=== PATIENT | female | born 1960 | race Caucasian/White ===

== ENCOUNTER 2019-12-18 10:18 | Inpatient (IN) ==
[2019-12-18] MEDS ORDERED: NALOXONE 4 MG IH PRN (14:28)
[2019-12-18] MEDS ORDERED: NON-FORMULARY MEDICATION 1 EACH EACH (Naloxone 4 MG) NS SCH (14:30)
[2019-12-18] MEDS: Insulin LISPRO 300 UNITS/3 ML VIAL SQ SCH ×2 (16:44→23:16)
[2019-12-18] MEDS: Gabapentin 300 MG CAPSULE PO SCH ×2 (16:44→23:22)
[2019-12-18] MEDS ORDERED: Insulin DETEMIR 100 UNIT/ML per UNIT SQ ONE (21:00)
[2019-12-18] MEDS: levETIRAcetam 250 MG TABLET PO SCH (23:20)
[2019-12-18] MEDS: *HR* Heparin 5,000 UNIT/ML VIAL SQ SCH (23:23)
[2019-12-19 05:10] LABS: Basophils # 0.1 K/mcL (0.0-0.2); Basophils % 0.8 %; Eosinophils # 0.3 K/mcL (0.0-0.6); Eosinophils % 3.5 %; Hematocrit 37.7 % (35.3-44.9); Hemoglobin 12.7 g/dL (11.5-15.4); Immature Granulocytes % 1.4 % (0-4); Lymphocytes # 3.2 K/mcL (0.6-4.6); Lymphocytes % 36.4 %; Mean Corpuscular HGB Conc 33.7 g/dL (31.6-35.5); Mean Corpuscular Hemoglobin 31.5 pg (28.0-33.3); Mean Corpuscular Volume 93.5 fL (83.0-100.0); Mean Platelet Volume 9.7 fL (9.4-12.4); Monocytes # 0.8 K/mcL (0.0-1.3); Monocytes % 9.7 %; Neutrophils # 4.2 K/mcL (1.6-8.9); Nucleated Red Blood Cells 0.2 /100 WBC (0); Platelet Count 319 K/mcL (140-400); Red Blood Count 4.03 M/mcL (3.82-4.97); Red Cell Distribution Width 13.6 % (11.5-14.5); Segmented Neutrophils % 48.2 %; White Blood Count 8.7 K/mcL (4.3-11.1)
[2019-12-19 05:24] LABS: BUN/Creatinine Ratio 22 (6-26); Blood Urea Nitrogen 14 mg/dL (8-23); Calcium 8.9 mg/dL (8.6-10.3); Carbon Dioxide 28 mEq/L (23-29); Chloride 101 mEq/L (98-107); Glucose 197 mg/dL (70-105); Osmolality,Calculated 290 (280-300); Potassium 4.1 mEq/L (3.5-5.1); Sodium 137 mEq/L (136-145); eGFR For African Americans > 60 (> 60); eGFR For Non-African Americans > 60 (> 60)
[2019-12-19] MEDS: *HR* Heparin 5,000 UNIT/ML VIAL SQ SCH ×3 (06:45→21:26)
[2019-12-19] MEDS: Tiotropium 18 MCG inhalation IH SCH (10:45)
[2019-12-19] MEDS: BuPROPion XL (24 HR) 150 MG TABLET PO SCH (11:32)
[2019-12-19] MEDS: ARIPiprazole 2 MG TABLET PO SCH (11:32)
[2019-12-19] MEDS: Insulin LISPRO 300 UNITS/3 ML VIAL SQ SCH ×4 (11:32→21:25)
[2019-12-19] MEDS: amLODIPine 5 MG TABLET PO SCH (11:33)
[2019-12-19] MEDS: Gabapentin 300 MG CAPSULE PO SCH ×3 (11:33→21:26)
[2019-12-19] MEDS: Loratadine 10 MG TABLET PO SCH (11:34)
[2019-12-19] MEDS: Aspirin 81 MG TAB.CHEW PO SCH (11:34)
[2019-12-19] MEDS: levETIRAcetam 250 MG TABLET PO SCH ×2 (11:34→21:25)
[2019-12-19] MEDS: Cholecalciferol (D-3) 1,000 UNIT (25MCG) TABLET PO SCH (11:34)
[2019-12-19] MEDS: Cyanocobalamin (B-12) 1,000 MCG TABLET PO SCH (11:35)
[2019-12-19] MEDS: Nystatin SUSP 5 ML UD.LIQ PO SCH ×2 (18:39→21:26)
[2019-12-19] MEDS: Budesonide/Formoterol 160/4.5 1 PUFF INH IH SCH ×2 (20:58)
[2019-12-19] MEDS ORDERED: Insulin DETEMIR 100 UNIT/ML X5UNITS SQ SCH (21:00)
[2019-12-19] MEDS: Nystatin Cream 15 GM TUBE TP SCH (21:26)
[2019-12-19] MEDS: Insulin DETEMIR 100 UNIT/ML X5UNITS SQ SCH (21:26)
[2019-12-20] MEDS: *HR* Heparin 5,000 UNIT/ML VIAL SQ SCH ×3 (04:46→20:18)
[2019-12-20 06:06] LABS: Hematocrit 38.3 % (35.3-44.9); Hemoglobin 12.9 g/dL (11.5-15.4); Mean Corpuscular HGB Conc 33.7 g/dL (31.6-35.5); Mean Corpuscular Hemoglobin 31.4 pg (28.0-33.3); Mean Corpuscular Volume 93.2 fL (83.0-100.0); Mean Platelet Volume 9.6 fL (9.4-12.4); Platelet Count 298 K/mcL (140-400); Red Blood Count 4.11 M/mcL (3.82-4.97); Red Cell Distribution Width 13.7 % (11.5-14.5)
[2019-12-20 06:24] LABS: BUN/Creatinine Ratio 24 (6-26); Blood Urea Nitrogen 16 mg/dL (8-23); Calcium 8.9 mg/dL (8.6-10.3); Carbon Dioxide 29 mEq/L (23-29); Chloride 98 mEq/L (98-107); Glucose 161 mg/dL (70-105); Osmolality,Calculated 285 (280-300); Potassium 3.8 mEq/L (3.5-5.1); Sodium 135 mEq/L (136-145); eGFR For African Americans > 60 (> 60); eGFR For Non-African Americans > 60 (> 60)
[2019-12-20] MEDS: Tiotropium 18 MCG inhalation IH SCH (07:23)
[2019-12-20] MEDS: Budesonide/Formoterol 160/4.5 1 PUFF INH IH SCH ×2 (07:24→20:25)
[2019-12-20] MEDS: Insulin LISPRO 300 UNITS/3 ML VIAL SQ SCH ×4 (09:09→20:17)
[2019-12-20] MEDS: Insulin DETEMIR 100 UNIT/ML X5UNITS SQ SCH ×2 (09:55→20:17)
[2019-12-20] MEDS: ARIPiprazole 2 MG TABLET PO SCH (09:56)
[2019-12-20] MEDS: BuPROPion XL (24 HR) 150 MG TABLET PO SCH (09:56)
[2019-12-20] MEDS: levETIRAcetam 250 MG TABLET PO SCH ×2 (09:56→20:17)
[2019-12-20] MEDS: Cholecalciferol (D-3) 1,000 UNIT (25MCG) TABLET PO SCH (09:57)
[2019-12-20] MEDS: amLODIPine 5 MG TABLET PO SCH (09:57)
[2019-12-20] MEDS: Gabapentin 300 MG CAPSULE PO SCH ×3 (09:57→20:18)
[2019-12-20] MEDS: Nystatin Cream 15 GM TUBE TP SCH ×2 (09:58→20:18)
[2019-12-20] MEDS: Aspirin 81 MG TAB.CHEW PO SCH (09:58)
[2019-12-20] MEDS: Nystatin SUSP 5 ML UD.LIQ PO SCH ×4 (09:58→20:18)
[2019-12-20] MEDS: Loratadine 10 MG TABLET PO SCH (09:58)
[2019-12-20] MEDS: Cyanocobalamin (B-12) 1,000 MCG TABLET PO SCH (11:49)
[2019-12-21] MEDS: *HR* Heparin 5,000 UNIT/ML VIAL SQ SCH ×3 (04:09→20:41)
[2019-12-21] MEDS: Tiotropium 18 MCG inhalation IH SCH (07:36)
[2019-12-21] MEDS: Budesonide/Formoterol 160/4.5 1 PUFF INH IH SCH ×2 (07:36→21:36)
[2019-12-21] MEDS: levETIRAcetam 250 MG TABLET PO SCH ×2 (09:26→20:40)
[2019-12-21] MEDS: BuPROPion XL (24 HR) 150 MG TABLET PO SCH (09:26)
[2019-12-21] MEDS: ARIPiprazole 2 MG TABLET PO SCH (09:27)
[2019-12-21] MEDS: Gabapentin 300 MG CAPSULE PO SCH ×3 (09:27→20:41)
[2019-12-21] MEDS: Cyanocobalamin (B-12) 1,000 MCG TABLET PO SCH (09:28)
[2019-12-21] MEDS: Insulin DETEMIR 100 UNIT/ML X5UNITS SQ SCH ×2 (09:28→20:40)
[2019-12-21] MEDS: amLODIPine 5 MG TABLET PO SCH (09:28)
[2019-12-21] MEDS: Cholecalciferol (D-3) 1,000 UNIT (25MCG) TABLET PO SCH (09:28)
[2019-12-21] MEDS: Aspirin 81 MG TAB.CHEW PO SCH (09:28)
[2019-12-21] MEDS: Loratadine 10 MG TABLET PO SCH (09:28)
[2019-12-21] MEDS: Nystatin SUSP 5 ML UD.LIQ PO SCH ×3 (09:29→20:40)
[2019-12-21] MEDS: Nystatin Cream 15 GM TUBE TP SCH ×2 (09:29→20:40)
[2019-12-21] MEDS: Insulin LISPRO 300 UNITS/3 ML VIAL SQ SCH ×3 (09:29→20:42)
[2019-12-21 21:41] LABS: Bilirubin,Urine Negative (Negative); Blood,Urine Trace-lysed (Negative); Clarity,Urine Clear (Clear); Color,Urine Yellow (Yellow); Glucose,Urine (UA) Normal (Normal); Ketones,Urine Trace mg/dL (Negative); Leukocyte Esterase,Urine Small (Negative); Nitrite,Urine Positive (Negative); PH,Urine 5.5 pH Units (5.0-8.0); Protein,Urine 100 mg/dL (Neg-Trace); Specific Gravity,Urine >= 1.030 (1.010-1.025); Urobilinogen,Urine Normal (Normal)
[2019-12-21 21:50] LABS: Bacteria,Urine Many per hpf (None-Few); Mucus,Urine Many per lpf (None-Few); Squamous Epithelial Cell,Urine Few per hpf (None-Few); WBC,Urine 15-30 per hpf (0-3)
[2019-12-22] MEDS: *HR* Heparin 5,000 UNIT/ML VIAL SQ SCH ×3 (06:06→21:58)
[2019-12-22] MEDS: Budesonide/Formoterol 160/4.5 1 PUFF INH IH SCH ×2 (07:13→17:36)
[2019-12-22] MEDS: Tiotropium 18 MCG inhalation IH SCH (07:14)
[2019-12-22] MEDS: ARIPiprazole 2 MG TABLET PO SCH (08:38)
[2019-12-22] MEDS: levETIRAcetam 250 MG TABLET PO SCH ×2 (08:39→21:52)
[2019-12-22] MEDS: Aspirin 81 MG TAB.CHEW PO SCH (08:39)
[2019-12-22] MEDS: Nystatin SUSP 5 ML UD.LIQ PO SCH ×4 (08:39→21:56)
[2019-12-22] MEDS: BuPROPion XL (24 HR) 150 MG TABLET PO SCH (08:40)
[2019-12-22] MEDS: Gabapentin 300 MG CAPSULE PO SCH ×3 (08:40→21:54)
[2019-12-22] MEDS: amLODIPine 5 MG TABLET PO SCH (08:40)
[2019-12-22] MEDS: Loratadine 10 MG TABLET PO SCH (08:40)
[2019-12-22] MEDS: Cholecalciferol (D-3) 1,000 UNIT (25MCG) TABLET PO SCH (08:40)
[2019-12-22] MEDS: Insulin LISPRO 300 UNITS/3 ML VIAL SQ SCH ×4 (08:41→22:31)
[2019-12-22] MEDS: Cyanocobalamin (B-12) 1,000 MCG TABLET PO SCH (08:41)
[2019-12-22] MEDS: Insulin DETEMIR 100 UNIT/ML X5UNITS SQ SCH ×2 (08:47→22:36)
[2019-12-22] MEDS: Nystatin Cream 15 GM TUBE TP SCH ×2 (09:01→21:57)
[2019-12-23] MEDS: *HR* Heparin 5,000 UNIT/ML VIAL SQ SCH ×3 (06:23→22:11)
[2019-12-23] MEDS: Tiotropium 18 MCG inhalation IH SCH (07:08)
[2019-12-23] MEDS: Budesonide/Formoterol 160/4.5 1 PUFF INH IH SCH ×2 (07:08→21:43)
[2019-12-23] MEDS: BuPROPion XL (24 HR) 150 MG TABLET PO SCH (09:24)
[2019-12-23] MEDS: Cholecalciferol (D-3) 1,000 UNIT (25MCG) TABLET PO SCH (09:24)
[2019-12-23] MEDS: Gabapentin 300 MG CAPSULE PO SCH ×3 (09:24→20:09)
[2019-12-23] MEDS: Nystatin SUSP 5 ML UD.LIQ PO SCH ×4 (09:25→20:11)
[2019-12-23] MEDS: Aspirin 81 MG TAB.CHEW PO SCH (09:25)
[2019-12-23] MEDS: Loratadine 10 MG TABLET PO SCH (09:25)
[2019-12-23] MEDS: amLODIPine 5 MG TABLET PO SCH (09:25)
[2019-12-23] MEDS: levETIRAcetam 250 MG TABLET PO SCH ×2 (09:25→20:07)
[2019-12-23] MEDS: Cyanocobalamin (B-12) 1,000 MCG TABLET PO SCH (09:25)
[2019-12-23] MEDS: Insulin LISPRO 300 UNITS/3 ML VIAL SQ SCH ×4 (09:26→22:07)
[2019-12-23] MEDS: ARIPiprazole 2 MG TABLET PO SCH (09:26)
[2019-12-23] MEDS: Nystatin Cream 15 GM TUBE TP SCH ×2 (09:27→20:11)
[2019-12-23] MEDS: Insulin DETEMIR 100 UNIT/ML X5UNITS SQ SCH ×2 (09:27→22:10)
[2019-12-24] MEDS: *HR* Heparin 5,000 UNIT/ML VIAL SQ SCH ×3 (05:00→21:50)
[2019-12-24 05:21] LABS: Basophils # 0.1 K/mcL (0.0-0.2); Basophils % 0.7 %; Eosinophils # 0.2 K/mcL (0.0-0.6); Eosinophils % 2.2 %; Hematocrit 36.2 % (35.3-44.9); Hemoglobin 12.2 g/dL (11.5-15.4); Immature Granulocytes % 0.6 % (0-4); Lymphocytes # 4.3 K/mcL (0.6-4.6); Lymphocytes % 48.4 %; Mean Corpuscular HGB Conc 33.7 g/dL (31.6-35.5); Mean Corpuscular Hemoglobin 31.7 pg (28.0-33.3); Mean Platelet Volume 9.7 fL (9.4-12.4); Monocytes # 0.7 K/mcL (0.0-1.3); Monocytes % 7.7 %; Neutrophils # 3.6 K/mcL (1.6-8.9); Platelet Count 282 K/mcL (140-400); Red Blood Count 3.85 M/mcL (3.82-4.97); Red Cell Distribution Width 14.2 % (11.5-14.5); Segmented Neutrophils % 40.4 %; White Blood Count 8.9 K/mcL (4.3-11.1)
[2019-12-24 05:32] LABS: BUN/Creatinine Ratio 26 (6-26); Blood Urea Nitrogen 16 mg/dL (8-23); Calcium 8.9 mg/dL (8.6-10.3); Carbon Dioxide 27 mEq/L (23-29); Chloride 101 mEq/L (98-107); Glucose 191 mg/dL (70-105); Osmolality,Calculated 290 (280-300); Sodium 137 mEq/L (136-145); eGFR For African Americans > 60 (> 60); eGFR For Non-African Americans > 60 (> 60)
[2019-12-24] MEDS: Aspirin 81 MG TAB.CHEW PO SCH (09:33)
[2019-12-24] MEDS: BuPROPion XL (24 HR) 150 MG TABLET PO SCH (09:33)
[2019-12-24] MEDS: Gabapentin 300 MG CAPSULE PO SCH ×3 (09:34→21:50)
[2019-12-24] MEDS: levETIRAcetam 250 MG TABLET PO SCH ×2 (09:34→21:49)
[2019-12-24] MEDS: Cholecalciferol (D-3) 1,000 UNIT (25MCG) TABLET PO SCH (09:36)
[2019-12-24] MEDS: Loratadine 10 MG TABLET PO SCH (09:37)
[2019-12-24] MEDS: ARIPiprazole 2 MG TABLET PO SCH (09:37)
[2019-12-24] MEDS: amLODIPine 5 MG TABLET PO SCH (09:39)
[2019-12-24] MEDS: Cyanocobalamin (B-12) 1,000 MCG TABLET PO SCH (09:39)
[2019-12-24] MEDS: Budesonide/Formoterol 160/4.5 1 PUFF INH IH SCH ×2 (09:58→22:06)
[2019-12-24] MEDS: Tiotropium 18 MCG inhalation IH SCH (10:02)
[2019-12-24] MEDS: Nystatin SUSP 5 ML UD.LIQ PO SCH ×4 (13:32→21:49)
[2019-12-24] MEDS: Nystatin Cream 15 GM TUBE TP SCH ×2 (13:33→23:58)
[2019-12-24] MEDS: Insulin LISPRO 300 UNITS/3 ML VIAL SQ SCH ×3 (13:34→21:51)
[2019-12-24] MEDS: Insulin DETEMIR 100 UNIT/ML X5UNITS SQ SCH ×2 (13:40→21:51)
[2019-12-25] MEDS: *HR* Heparin 5,000 UNIT/ML VIAL SQ SCH ×3 (05:33→21:10)
[2019-12-25] MEDS: Insulin LISPRO 300 UNITS/3 ML VIAL SQ SCH ×4 (08:30→22:52)
[2019-12-25] MEDS: levETIRAcetam 250 MG TABLET PO SCH ×2 (08:31→21:09)
[2019-12-25] MEDS: Loratadine 10 MG TABLET PO SCH (08:31)
[2019-12-25] MEDS: amLODIPine 5 MG TABLET PO SCH (08:31)
[2019-12-25] MEDS: Nystatin SUSP 5 ML UD.LIQ PO SCH ×2 (08:31→12:20)
[2019-12-25] MEDS: Gabapentin 300 MG CAPSULE PO SCH ×3 (08:32→21:08)
[2019-12-25] MEDS: Aspirin 81 MG TAB.CHEW PO SCH (08:32)
[2019-12-25] MEDS: Cholecalciferol (D-3) 1,000 UNIT (25MCG) TABLET PO SCH (08:32)
[2019-12-25] MEDS: BuPROPion XL (24 HR) 150 MG TABLET PO SCH (08:32)
[2019-12-25] MEDS: ARIPiprazole 2 MG TABLET PO SCH (08:32)
[2019-12-25] MEDS: Nystatin Cream 15 GM TUBE TP SCH ×2 (08:33→22:53)
[2019-12-25] MEDS: Cyanocobalamin (B-12) 1,000 MCG TABLET PO SCH (08:33)
[2019-12-25] MEDS: Tiotropium 18 MCG inhalation IH SCH (11:17)
[2019-12-25] MEDS: Budesonide/Formoterol 160/4.5 1 PUFF INH IH SCH ×2 (11:17→22:18)
[2019-12-25] MEDS: Insulin DETEMIR 100 UNIT/ML X5UNITS SQ SCH ×2 (12:15→21:10)
[2019-12-25] MEDS: Vancomycin Oral Soln 125 MG/2.5 ML UDC PO SCH ×2 (17:21→21:10)
[2019-12-26] MEDS: *HR* Heparin 5,000 UNIT/ML VIAL SQ SCH ×3 (04:55→20:31)
[2019-12-26 05:23] LABS: Hemoglobin 11.7 g/dL (11.5-15.4); Mean Corpuscular HGB Conc 33.4 g/dL (31.6-35.5); Mean Corpuscular Volume 95.6 fL (83.0-100.0); Mean Platelet Volume 9.6 fL (9.4-12.4); Platelet Count 282 K/mcL (140-400); Red Blood Count 3.66 M/mcL (3.82-4.97); Red Cell Distribution Width 14.3 % (11.5-14.5); White Blood Count 8.9 K/mcL (4.3-11.1)
[2019-12-26 05:38] LABS: BUN/Creatinine Ratio 23 (6-26); Blood Urea Nitrogen 14 mg/dL (8-23); Calcium 8.9 mg/dL (8.6-10.3); Carbon Dioxide 29 mEq/L (23-29); Chloride 102 mEq/L (98-107); Glucose 167 mg/dL (70-105); Osmolality,Calculated 292 (280-300); Sodium 139 mEq/L (136-145); eGFR For African Americans > 60 (> 60); eGFR For Non-African Americans > 60 (> 60)
[2019-12-26] MEDS: amLODIPine 5 MG TABLET PO SCH (08:51)
[2019-12-26] MEDS: levETIRAcetam 250 MG TABLET PO SCH ×2 (08:52→20:32)
[2019-12-26] MEDS: Cholecalciferol (D-3) 1,000 UNIT (25MCG) TABLET PO SCH (08:52)
[2019-12-26] MEDS: Cyanocobalamin (B-12) 1,000 MCG TABLET PO SCH (08:52)
[2019-12-26] MEDS: Loratadine 10 MG TABLET PO SCH (08:52)
[2019-12-26] MEDS: BuPROPion XL (24 HR) 150 MG TABLET PO SCH (08:52)
[2019-12-26] MEDS: ARIPiprazole 2 MG TABLET PO SCH (08:52)
[2019-12-26] MEDS: Gabapentin 300 MG CAPSULE PO SCH ×3 (08:52→20:31)
[2019-12-26] MEDS: Insulin DETEMIR 100 UNIT/ML X5UNITS SQ SCH ×2 (08:53→20:30)
[2019-12-26] MEDS: Vancomycin Oral Soln 125 MG/2.5 ML UDC PO SCH ×4 (08:53→20:30)
[2019-12-26] MEDS: Aspirin 81 MG TAB.CHEW PO SCH (08:53)
[2019-12-26] MEDS: Insulin LISPRO 300 UNITS/3 ML VIAL SQ SCH ×4 (08:54→20:30)
[2019-12-26] MEDS: Nystatin Cream 15 GM TUBE TP SCH ×2 (08:55→20:33)
[2019-12-26] MEDS: Tiotropium 18 MCG inhalation IH SCH (10:33)
[2019-12-26] MEDS: Budesonide/Formoterol 160/4.5 1 PUFF INH IH SCH ×2 (10:34→22:15)
[2019-12-27] MEDS: *HR* Heparin 5,000 UNIT/ML VIAL SQ SCH ×3 (04:18→23:12)
[2019-12-27] MEDS: Budesonide/Formoterol 160/4.5 1 PUFF INH IH SCH ×2 (07:33→21:53)
[2019-12-27] MEDS: Tiotropium 18 MCG inhalation IH SCH (07:34)
[2019-12-27] MEDS: Insulin DETEMIR 100 UNIT/ML X5UNITS SQ SCH ×2 (08:00→23:13)
[2019-12-27] MEDS: BuPROPion XL (24 HR) 150 MG TABLET PO SCH (08:38)
[2019-12-27] MEDS: Cholecalciferol (D-3) 1,000 UNIT (25MCG) TABLET PO SCH (08:39)
[2019-12-27] MEDS: Aspirin 81 MG TAB.CHEW PO SCH (08:39)
[2019-12-27] MEDS: Cyanocobalamin (B-12) 1,000 MCG TABLET PO SCH (08:39)
[2019-12-27] MEDS: levETIRAcetam 250 MG TABLET PO SCH ×2 (08:40→23:11)
[2019-12-27] MEDS: Gabapentin 300 MG CAPSULE PO SCH ×3 (08:40→23:12)
[2019-12-27] MEDS: ARIPiprazole 2 MG TABLET PO SCH (08:40)
[2019-12-27] MEDS: Loratadine 10 MG TABLET PO SCH (08:40)
[2019-12-27] MEDS: amLODIPine 5 MG TABLET PO SCH (08:41)
[2019-12-27] MEDS: Vancomycin Oral Soln 125 MG/2.5 ML UDC PO SCH ×4 (08:42→23:10)
[2019-12-27] MEDS: Nystatin Cream 15 GM TUBE TP SCH ×2 (08:51→23:12)
[2019-12-27] MEDS: Insulin LISPRO 300 UNITS/3 ML VIAL SQ SCH ×4 (08:52→23:11)
[2019-12-27 15:25] LABS: Bilirubin,Urine Negative (Negative); Blood,Urine Trace-lysed (Negative); Clarity,Urine Clear (Clear); Color,Urine Yellow (Yellow); Glucose,Urine (UA) Normal (Normal); Ketones,Urine Negative (Negative); Leukocyte Esterase,Urine Negative (Negative); Nitrite,Urine Positive (Negative); PH,Urine 5.5 pH Units (5.0-8.0); Protein,Urine 100 mg/dL (Neg-Trace); Specific Gravity,Urine >= 1.030 (1.010-1.025); Urobilinogen,Urine Normal (Normal)
[2019-12-27 15:54] LABS: Bacteria,Urine Moderate per hpf (None-Few); Squamous Epithelial Cell,Urine Few per hpf (None-Few); WBC,Urine 0-3 per hpf (0-3)
[2019-12-28] MEDS: *HR* Heparin 5,000 UNIT/ML VIAL SQ SCH ×3 (06:25→22:15)
[2019-12-28] MEDS: Insulin LISPRO 300 UNITS/3 ML VIAL SQ SCH ×4 (09:11→22:17)
[2019-12-28] MEDS: Insulin DETEMIR 100 UNIT/ML X5UNITS SQ SCH ×2 (09:11→22:14)
[2019-12-28] MEDS: Loratadine 10 MG TABLET PO SCH (09:11)
[2019-12-28] MEDS: Vancomycin Oral Soln 125 MG/2.5 ML UDC PO SCH ×4 (09:11→22:15)
[2019-12-28] MEDS: ARIPiprazole 2 MG TABLET PO SCH (09:11)
[2019-12-28] MEDS: levETIRAcetam 250 MG TABLET PO SCH ×2 (09:11→22:15)
[2019-12-28] MEDS: Cholecalciferol (D-3) 1,000 UNIT (25MCG) TABLET PO SCH (09:12)
[2019-12-28] MEDS: amLODIPine 5 MG TABLET PO SCH (09:12)
[2019-12-28] MEDS: BuPROPion XL (24 HR) 150 MG TABLET PO SCH (09:12)
[2019-12-28] MEDS: Cyanocobalamin (B-12) 1,000 MCG TABLET PO SCH (09:12)
[2019-12-28] MEDS: Aspirin 81 MG TAB.CHEW PO SCH (09:12)
[2019-12-28] MEDS: Nystatin Cream 15 GM TUBE TP SCH ×2 (09:13→22:17)
[2019-12-28] MEDS: Gabapentin 300 MG CAPSULE PO SCH ×3 (09:13→22:16)
[2019-12-28] MEDS: Budesonide/Formoterol 160/4.5 1 PUFF INH IH SCH ×2 (10:50→21:10)
[2019-12-28] MEDS: Tiotropium 18 MCG inhalation IH SCH (10:50)
[2019-12-29] MEDS: *HR* Heparin 5,000 UNIT/ML VIAL SQ SCH ×3 (06:34→20:22)
[2019-12-29] MEDS: amLODIPine 5 MG TABLET PO SCH (08:52)
[2019-12-29] MEDS: Aspirin 81 MG TAB.CHEW PO SCH (08:52)
[2019-12-29] MEDS: levETIRAcetam 250 MG TABLET PO SCH ×2 (09:05→20:24)
[2019-12-29] MEDS: BuPROPion XL (24 HR) 150 MG TABLET PO SCH (09:05)
[2019-12-29] MEDS: ARIPiprazole 2 MG TABLET PO SCH (09:05)
[2019-12-29] MEDS: Cyanocobalamin (B-12) 1,000 MCG TABLET PO SCH (09:08)
[2019-12-29] MEDS: Loratadine 10 MG TABLET PO SCH (09:08)
[2019-12-29] MEDS: Cholecalciferol (D-3) 1,000 UNIT (25MCG) TABLET PO SCH (09:08)
[2019-12-29] MEDS: Gabapentin 300 MG CAPSULE PO SCH ×3 (09:08→20:24)
[2019-12-29] MEDS: Insulin DETEMIR 100 UNIT/ML X5UNITS SQ SCH ×2 (09:09→20:23)
[2019-12-29] MEDS: Vancomycin Oral Soln 125 MG/2.5 ML UDC PO SCH ×4 (09:10→20:25)
[2019-12-29] MEDS: Budesonide/Formoterol 160/4.5 1 PUFF INH IH SCH ×2 (09:14→21:33)
[2019-12-29] MEDS: Tiotropium 18 MCG inhalation IH SCH (09:15)
[2019-12-29] MEDS: Nystatin Cream 15 GM TUBE TP SCH ×2 (09:29→20:25)
[2019-12-29] MEDS: Insulin LISPRO 300 UNITS/3 ML VIAL SQ SCH ×4 (09:29→20:20)
[2019-12-30] MEDS: *HR* Heparin 5,000 UNIT/ML VIAL SQ SCH ×3 (05:23→20:11)
[2019-12-30 06:01] LABS: Hematocrit 36.5 % (35.3-44.9); Hemoglobin 11.8 g/dL (11.5-15.4); Mean Corpuscular HGB Conc 32.3 g/dL (31.6-35.5); Mean Corpuscular Hemoglobin 30.6 pg (28.0-33.3); Mean Corpuscular Volume 94.8 fL (83.0-100.0); Mean Platelet Volume 9.4 fL (9.4-12.4); Platelet Count 325 K/mcL (140-400); Red Blood Count 3.85 M/mcL (3.82-4.97); Red Cell Distribution Width 14.6 % (11.5-14.5); White Blood Count 8.3 K/mcL (4.3-11.1)
[2019-12-30 06:43] LABS: Alanine Aminotransferase 15 Units/L (7-52); Albumin 3.4 g/dL (3.5-5.7); Albumin/Globulin Ratio 1.1 (1.1-2.2); Alkaline Phosphatase 109 Units/L (34-104); Aspartate Amino Transferase 13 Units/L (13-39); BUN/Creatinine Ratio 22 (6-26); Bilirubin,Total 0.4 mg/dL (0.3-1.0); Blood Urea Nitrogen 14 mg/dL (8-23); Carbon Dioxide 30 mEq/L (23-29); Chloride 101 mEq/L (98-107); Globulin 3.1 g/dL (2.4-3.5); Glucose 163 mg/dL (70-105); Magnesium 1.9 mg/dL (1.6-2.6); Osmolality,Calculated 288 (280-300); Potassium 3.7 mEq/L (3.5-5.1); Sodium 137 mEq/L (136-145); Total Protein 6.5 g/dL (6.4-8.9); eGFR For African Americans > 60 (> 60); eGFR For Non-African Americans > 60 (> 60)
[2019-12-30] MEDS: Cholecalciferol (D-3) 1,000 UNIT (25MCG) TABLET PO SCH (09:41)
[2019-12-30] MEDS: Insulin LISPRO 300 UNITS/3 ML VIAL SQ SCH ×4 (09:41→20:11)
[2019-12-30] MEDS: ARIPiprazole 2 MG TABLET PO SCH (09:42)
[2019-12-30] MEDS: Vancomycin Oral Soln 125 MG/2.5 ML UDC PO SCH ×4 (09:42→20:14)
[2019-12-30] MEDS: BuPROPion XL (24 HR) 150 MG TABLET PO SCH (09:42)
[2019-12-30] MEDS: Aspirin 81 MG TAB.CHEW PO SCH (09:42)
[2019-12-30] MEDS: Gabapentin 300 MG CAPSULE PO SCH ×3 (09:42→20:12)
[2019-12-30] MEDS: Acetaminophen 325 MG TABLET PO PRN ×2 (09:42→20:12)
[2019-12-30] MEDS: levETIRAcetam 250 MG TABLET PO SCH ×2 (09:42→20:12)
[2019-12-30] MEDS: amLODIPine 5 MG TABLET PO SCH (09:43)
[2019-12-30] MEDS: Cyanocobalamin (B-12) 1,000 MCG TABLET PO SCH (09:43)
[2019-12-30] MEDS: Loratadine 10 MG TABLET PO SCH (09:43)
[2019-12-30] MEDS: Insulin DETEMIR 100 UNIT/ML X5UNITS SQ SCH ×2 (09:43→20:11)
[2019-12-30] MEDS: Nystatin Cream 15 GM TUBE TP SCH ×2 (09:44→20:12)
[2019-12-30] MEDS: Budesonide/Formoterol 160/4.5 1 PUFF INH IH SCH ×2 (10:23→22:16)
[2019-12-30] MEDS: Tiotropium 18 MCG inhalation IH SCH (10:24)
[2019-12-31] MEDS: Acetaminophen 325 MG TABLET PO PRN (01:38)
[2019-12-31] MEDS: *HR* Heparin 5,000 UNIT/ML VIAL SQ SCH ×3 (05:42→20:32)
[2019-12-31] MEDS: Insulin LISPRO 300 UNITS/3 ML VIAL SQ SCH ×4 (08:10→20:32)
[2019-12-31] MEDS: Insulin DETEMIR 100 UNIT/ML X5UNITS SQ SCH ×2 (08:10→20:32)
[2019-12-31] MEDS: levETIRAcetam 250 MG TABLET PO SCH ×2 (08:11→20:33)
[2019-12-31] MEDS: Vancomycin Oral Soln 125 MG/2.5 ML UDC PO SCH ×4 (08:11→20:32)
[2019-12-31] MEDS: Cyanocobalamin (B-12) 1,000 MCG TABLET PO SCH (08:12)
[2019-12-31] MEDS: Gabapentin 300 MG CAPSULE PO SCH ×3 (08:12→20:32)
[2019-12-31] MEDS: ARIPiprazole 2 MG TABLET PO SCH (08:12)
[2019-12-31] MEDS: amLODIPine 5 MG TABLET PO SCH (08:12)
[2019-12-31] MEDS: Loratadine 10 MG TABLET PO SCH (08:12)
[2019-12-31] MEDS: Cholecalciferol (D-3) 1,000 UNIT (25MCG) TABLET PO SCH (08:12)
[2019-12-31] MEDS: BuPROPion XL (24 HR) 150 MG TABLET PO SCH (08:12)
[2019-12-31] MEDS: Aspirin 81 MG TAB.CHEW PO SCH (08:12)
[2019-12-31] MEDS: Nystatin Cream 15 GM TUBE TP SCH ×2 (08:13→20:34)
[2019-12-31] MEDS ORDERED: Ertapenem 1,000 MG in 0.9 % Sodium Chloride Mini Bag 100 ML IVPB SCH (09:00)
[2019-12-31] MEDS: Budesonide/Formoterol 160/4.5 1 PUFF INH IH SCH ×2 (11:56→22:47)
[2019-12-31] MEDS: Tiotropium 18 MCG inhalation IH SCH (11:56)
[2020-01-01] MEDS: Acetaminophen 325 MG TABLET PO PRN ×3 (00:57→21:48)
[2020-01-01 05:28] LABS: Basophils % 0.4 %; Eosinophils # 0.2 K/mcL (0.0-0.6); Eosinophils % 2.6 %; Hematocrit 36.3 % (35.3-44.9); Hemoglobin 12.1 g/dL (11.5-15.4); Immature Granulocytes % 0.4 % (0-4); Lymphocytes % 54.1 %; Mean Corpuscular HGB Conc 33.3 g/dL (31.6-35.5); Mean Corpuscular Hemoglobin 31.7 pg (28.0-33.3); Mean Platelet Volume 9.1 fL (9.4-12.4); Monocytes # 0.8 K/mcL (0.0-1.3); Monocytes % 8.2 %; Neutrophils # 3.2 K/mcL (1.6-8.9); Platelet Count 325 K/mcL (140-400); Red Blood Count 3.82 M/mcL (3.82-4.97); Red Cell Distribution Width 14.6 % (11.5-14.5); Segmented Neutrophils % 34.3 %; White Blood Count 9.3 K/mcL (4.3-11.1)
[2020-01-01 05:43] LABS: BUN/Creatinine Ratio 21 (6-26); Blood Urea Nitrogen 14 mg/dL (8-23); Calcium 9.2 mg/dL (8.6-10.3); Carbon Dioxide 30 mEq/L (23-29); Chloride 100 mEq/L (98-107); Glucose 145 mg/dL (70-105); Osmolality,Calculated 285 (280-300); Sodium 136 mEq/L (136-145); eGFR For African Americans > 60 (> 60); eGFR For Non-African Americans > 60 (> 60)
[2020-01-01] MEDS: *HR* Heparin 5,000 UNIT/ML VIAL SQ SCH ×3 (05:50→20:50)
[2020-01-01] MEDS: Vancomycin Oral Soln 125 MG/2.5 ML UDC PO SCH ×4 (08:21→20:40)
[2020-01-01] MEDS: levETIRAcetam 250 MG TABLET PO SCH ×2 (08:23→20:39)
[2020-01-01] MEDS: amLODIPine 5 MG TABLET PO SCH (08:23)
[2020-01-01] MEDS: Gabapentin 300 MG CAPSULE PO SCH ×3 (08:25→20:39)
[2020-01-01] MEDS: Aspirin 81 MG TAB.CHEW PO SCH (08:25)
[2020-01-01] MEDS: ARIPiprazole 2 MG TABLET PO SCH (08:25)
[2020-01-01] MEDS: BuPROPion XL (24 HR) 150 MG TABLET PO SCH (08:27)
[2020-01-01] MEDS: Cyanocobalamin (B-12) 1,000 MCG TABLET PO SCH (08:27)
[2020-01-01] MEDS: Cholecalciferol (D-3) 1,000 UNIT (25MCG) TABLET PO SCH (08:27)
[2020-01-01] MEDS: Loratadine 10 MG TABLET PO SCH (08:28)
[2020-01-01] MEDS: Insulin DETEMIR 100 UNIT/ML X5UNITS SQ SCH ×2 (08:32→20:47)
[2020-01-01] MEDS: Insulin LISPRO 300 UNITS/3 ML VIAL SQ SCH ×4 (08:34→20:46)
[2020-01-01] MEDS: Nystatin Cream 15 GM TUBE TP SCH (08:36)
[2020-01-01] MEDS: Budesonide/Formoterol 160/4.5 1 PUFF INH IH SCH ×2 (09:52→23:21)
[2020-01-01] MEDS: Tiotropium 18 MCG inhalation IH SCH (09:52)
[2020-01-01] MEDS ORDERED: Nystatin Cream 15 GM TUBE TP PRN (14:12)
[2020-01-02] MEDS: Acetaminophen 325 MG TABLET PO PRN ×4 (02:39→21:52)
[2020-01-02] MEDS: *HR* Heparin 5,000 UNIT/ML VIAL SQ SCH ×3 (05:23→21:49)
[2020-01-02] MEDS: Vancomycin Oral Soln 125 MG/2.5 ML UDC PO SCH ×4 (08:09→21:49)
[2020-01-02] MEDS: ARIPiprazole 2 MG TABLET PO SCH (08:10)
[2020-01-02] MEDS: amLODIPine 5 MG TABLET PO SCH (08:10)
[2020-01-02] MEDS: levETIRAcetam 250 MG TABLET PO SCH ×2 (08:11→21:47)
[2020-01-02] MEDS: Cyanocobalamin (B-12) 1,000 MCG TABLET PO SCH (08:12)
[2020-01-02] MEDS: Gabapentin 300 MG CAPSULE PO SCH ×3 (08:12→21:47)
[2020-01-02] MEDS: Loratadine 10 MG TABLET PO SCH (08:13)
[2020-01-02] MEDS: BuPROPion XL (24 HR) 150 MG TABLET PO SCH (08:15)
[2020-01-02] MEDS: Cholecalciferol (D-3) 1,000 UNIT (25MCG) TABLET PO SCH (08:24)
[2020-01-02] MEDS: Insulin LISPRO 300 UNITS/3 ML VIAL SQ SCH ×4 (08:41→21:25)
[2020-01-02] MEDS: Insulin DETEMIR 100 UNIT/ML X5UNITS SQ SCH ×2 (08:43→21:49)
[2020-01-02] MEDS: Aspirin 81 MG TAB.CHEW PO SCH (08:44)
[2020-01-02] MEDS: Budesonide/Formoterol 160/4.5 1 PUFF INH IH SCH ×2 (12:34→21:40)
[2020-01-02] MEDS: Tiotropium 18 MCG inhalation IH SCH (12:36)
[2020-01-03] MEDS: *HR* Heparin 5,000 UNIT/ML VIAL SQ SCH ×3 (05:29→22:20)
[2020-01-03] MEDS: Acetaminophen 325 MG TABLET PO PRN ×3 (05:30→22:18)
[2020-01-03] MEDS: ARIPiprazole 2 MG TABLET PO SCH (08:54)
[2020-01-03] MEDS: Gabapentin 300 MG CAPSULE PO SCH ×3 (08:55→22:17)
[2020-01-03] MEDS: Loratadine 10 MG TABLET PO SCH (08:55)
[2020-01-03] MEDS: levETIRAcetam 250 MG TABLET PO SCH ×2 (08:56→22:16)
[2020-01-03] MEDS: Aspirin 81 MG TAB.CHEW PO SCH (08:56)
[2020-01-03] MEDS: BuPROPion XL (24 HR) 150 MG TABLET PO SCH (08:56)
[2020-01-03] MEDS: Cyanocobalamin (B-12) 1,000 MCG TABLET PO SCH (08:57)
[2020-01-03] MEDS: amLODIPine 5 MG TABLET PO SCH (08:57)
[2020-01-03] MEDS: Vancomycin Oral Soln 125 MG/2.5 ML UDC PO SCH ×4 (09:02→22:19)
[2020-01-03] MEDS: Cholecalciferol (D-3) 1,000 UNIT (25MCG) TABLET PO SCH (09:02)
[2020-01-03] MEDS: Insulin DETEMIR 100 UNIT/ML X5UNITS SQ SCH ×2 (09:02→22:21)
[2020-01-03] MEDS: Tiotropium 18 MCG inhalation IH SCH (10:59)
[2020-01-03] MEDS: Budesonide/Formoterol 160/4.5 1 PUFF INH IH SCH ×2 (10:59→20:57)
[2020-01-03] MEDS: Insulin LISPRO 300 UNITS/3 ML VIAL SQ SCH ×3 (13:39→22:21)
[2020-01-04] MEDS: *HR* Heparin 5,000 UNIT/ML VIAL SQ SCH ×3 (05:37→23:50)
[2020-01-04] MEDS: Acetaminophen 325 MG TABLET PO PRN ×3 (05:37→23:52)
[2020-01-04] MEDS: Vancomycin Oral Soln 125 MG/2.5 ML UDC PO SCH ×4 (08:54→23:53)
[2020-01-04] MEDS: levETIRAcetam 250 MG TABLET PO SCH ×2 (08:55→23:52)
[2020-01-04] MEDS: Aspirin 81 MG TAB.CHEW PO SCH (08:55)
[2020-01-04] MEDS: Cyanocobalamin (B-12) 1,000 MCG TABLET PO SCH (08:55)
[2020-01-04] MEDS: Cholecalciferol (D-3) 1,000 UNIT (25MCG) TABLET PO SCH (08:56)
[2020-01-04] MEDS: BuPROPion XL (24 HR) 150 MG TABLET PO SCH (08:56)
[2020-01-04] MEDS: ARIPiprazole 2 MG TABLET PO SCH (08:56)
[2020-01-04] MEDS: Gabapentin 300 MG CAPSULE PO SCH ×3 (08:56→23:53)
[2020-01-04] MEDS: Loratadine 10 MG TABLET PO SCH (08:57)
[2020-01-04] MEDS: amLODIPine 5 MG TABLET PO SCH (08:57)
[2020-01-04] MEDS: Insulin DETEMIR 100 UNIT/ML X5UNITS SQ SCH ×2 (08:58→23:50)
[2020-01-04] MEDS: Insulin LISPRO 300 UNITS/3 ML VIAL SQ SCH ×4 (08:59→23:51)
[2020-01-04] MEDS: Tiotropium 18 MCG inhalation IH SCH (11:05)
[2020-01-04] MEDS: Budesonide/Formoterol 160/4.5 1 PUFF INH IH SCH ×2 (11:07→21:37)
[2020-01-05] MEDS: Acetaminophen 325 MG TABLET PO PRN ×3 (05:23→20:29)
[2020-01-05] MEDS: *HR* Heparin 5,000 UNIT/ML VIAL SQ SCH ×3 (05:23→22:46)
[2020-01-05] MEDS: Cyanocobalamin (B-12) 1,000 MCG TABLET PO SCH (09:13)
[2020-01-05] MEDS: Cholecalciferol (D-3) 1,000 UNIT (25MCG) TABLET PO SCH (09:13)
[2020-01-05] MEDS: Insulin DETEMIR 100 UNIT/ML X5UNITS SQ SCH ×2 (09:13→20:33)
[2020-01-05] MEDS: Gabapentin 300 MG CAPSULE PO SCH ×3 (09:13→20:27)
[2020-01-05] MEDS: Loratadine 10 MG TABLET PO SCH (09:14)
[2020-01-05] MEDS: amLODIPine 5 MG TABLET PO SCH (09:14)
[2020-01-05] MEDS: BuPROPion XL (24 HR) 150 MG TABLET PO SCH (09:14)
[2020-01-05] MEDS: Insulin LISPRO 300 UNITS/3 ML VIAL SQ SCH ×4 (09:15→20:32)
[2020-01-05] MEDS: levETIRAcetam 250 MG TABLET PO SCH ×2 (09:15→20:27)
[2020-01-05] MEDS: ARIPiprazole 2 MG TABLET PO SCH (09:15)
[2020-01-05] MEDS: Aspirin 81 MG TAB.CHEW PO SCH (09:15)
[2020-01-05] MEDS: Vancomycin Oral Soln 125 MG/2.5 ML UDC PO SCH ×4 (09:27→20:30)
[2020-01-05] MEDS: Budesonide/Formoterol 160/4.5 1 PUFF INH IH SCH ×2 (10:10→22:46)
[2020-01-05] MEDS: Tiotropium 18 MCG inhalation IH SCH (10:11)
[2020-01-06] MEDS: *HR* Heparin 5,000 UNIT/ML VIAL SQ SCH ×3 (07:15→22:06)
[2020-01-06] MEDS: levETIRAcetam 250 MG TABLET PO SCH ×2 (09:28→22:06)
[2020-01-06] MEDS: Insulin DETEMIR 100 UNIT/ML X5UNITS SQ SCH ×2 (09:28→22:08)
[2020-01-06] MEDS: Insulin LISPRO 300 UNITS/3 ML VIAL SQ SCH ×4 (09:28→22:06)
[2020-01-06] MEDS: Cyanocobalamin (B-12) 1,000 MCG TABLET PO SCH (09:28)
[2020-01-06] MEDS: Vancomycin Oral Soln 125 MG/2.5 ML UDC PO SCH ×2 (09:28→12:53)
[2020-01-06] MEDS: Cholecalciferol (D-3) 1,000 UNIT (25MCG) TABLET PO SCH (09:28)
[2020-01-06] MEDS: BuPROPion XL (24 HR) 150 MG TABLET PO SCH (09:28)
[2020-01-06] MEDS: Aspirin 81 MG TAB.CHEW PO SCH (09:28)
[2020-01-06] MEDS: amLODIPine 5 MG TABLET PO SCH (09:29)
[2020-01-06] MEDS: Gabapentin 300 MG CAPSULE PO SCH ×3 (09:29→22:06)
[2020-01-06] MEDS: ARIPiprazole 2 MG TABLET PO SCH (09:30)
[2020-01-06] MEDS: Loratadine 10 MG TABLET PO SCH (09:30)
[2020-01-06] MEDS: Tiotropium 18 MCG inhalation IH SCH (10:38)
[2020-01-06] MEDS: Budesonide/Formoterol 160/4.5 1 PUFF INH IH SCH ×2 (10:40→21:07)
[2020-01-06] MEDS: Acetaminophen 325 MG TABLET PO PRN ×2 (12:52→22:07)
[2020-01-07] MEDS: *HR* Heparin 5,000 UNIT/ML VIAL SQ SCH ×3 (06:31→22:46)
[2020-01-07] MEDS: Acetaminophen 325 MG TABLET PO PRN ×3 (07:01→22:45)
[2020-01-07] MEDS: Gabapentin 300 MG CAPSULE PO SCH ×3 (08:03→22:45)
[2020-01-07] MEDS: levETIRAcetam 250 MG TABLET PO SCH ×2 (08:04→22:44)
[2020-01-07] MEDS: BuPROPion XL (24 HR) 150 MG TABLET PO SCH (08:04)
[2020-01-07] MEDS: ARIPiprazole 2 MG TABLET PO SCH (08:04)
[2020-01-07] MEDS: Loratadine 10 MG TABLET PO SCH (08:05)
[2020-01-07] MEDS: amLODIPine 5 MG TABLET PO SCH (08:05)
[2020-01-07] MEDS: Cholecalciferol (D-3) 1,000 UNIT (25MCG) TABLET PO SCH (08:06)
[2020-01-07] MEDS: Lactobacillus 1 EACH CAP.SPRINK PO SCH (08:07)
[2020-01-07] MEDS: Aspirin 81 MG TAB.CHEW PO SCH (08:07)
[2020-01-07] MEDS: Cyanocobalamin (B-12) 1,000 MCG TABLET PO SCH (08:08)
[2020-01-07] MEDS: Insulin LISPRO 300 UNITS/3 ML VIAL SQ SCH ×4 (08:13→22:42)
[2020-01-07] MEDS ORDERED: Insulin DETEMIR 100 UNIT/ML per UNIT SQ ONE (09:00)
[2020-01-07] MEDS: Budesonide/Formoterol 160/4.5 1 PUFF INH IH SCH ×2 (09:40→21:06)
[2020-01-07] MEDS: Tiotropium 18 MCG inhalation IH SCH (09:40)
[2020-01-07 15:52] LABS: Hematocrit 37.6 % (35.3-44.9); Hemoglobin 12.8 g/dL (11.5-15.4); Mean Corpuscular Hemoglobin 32.2 pg (28.0-33.3); Mean Corpuscular Volume 94.5 fL (83.0-100.0); Platelet Count 366 K/mcL (140-400); Red Blood Count 3.98 M/mcL (3.82-4.97); Red Cell Distribution Width 14.2 % (11.5-14.5); White Blood Count 9.2 K/mcL (4.3-11.1)
[2020-01-07 16:07] LABS: Alanine Aminotransferase 20 Units/L (7-52); Albumin 3.8 g/dL (3.5-5.7); Albumin/Globulin Ratio 1.2 (1.1-2.2); Alkaline Phosphatase 97 Units/L (34-104); Aspartate Amino Transferase 15 Units/L (13-39); BUN/Creatinine Ratio 25 (6-26); Bilirubin,Total 0.3 mg/dL (0.3-1.0); Blood Urea Nitrogen 17 mg/dL (8-23); Calcium 9.5 mg/dL (8.6-10.3); Carbon Dioxide 28 mEq/L (23-29); Chloride 99 mEq/L (98-107); Globulin 3.2 g/dL (2.4-3.5); Glucose 171 mg/dL (70-105); Magnesium 1.9 mg/dL (1.6-2.6); Osmolality,Calculated 288 (280-300); Sodium 136 mEq/L (136-145); eGFR For African Americans > 60 (> 60); eGFR For Non-African Americans > 60 (> 60)
[2020-01-07] MEDS: Insulin DETEMIR 100 UNIT/ML X5UNITS SQ SCH (22:46)
[2020-01-08] MEDS: *HR* Heparin 5,000 UNIT/ML VIAL SQ SCH ×3 (04:28→21:52)
[2020-01-08] MEDS: levETIRAcetam 250 MG TABLET PO SCH ×2 (08:03→21:51)
[2020-01-08] MEDS: Gabapentin 300 MG CAPSULE PO SCH ×3 (08:03→21:50)
[2020-01-08] MEDS: BuPROPion XL (24 HR) 150 MG TABLET PO SCH (08:04)
[2020-01-08] MEDS: Cholecalciferol (D-3) 1,000 UNIT (25MCG) TABLET PO SCH (08:05)
[2020-01-08] MEDS: Aspirin 81 MG TAB.CHEW PO SCH (08:05)
[2020-01-08] MEDS: Lactobacillus 1 EACH CAP.SPRINK PO SCH (08:05)
[2020-01-08] MEDS: Cyanocobalamin (B-12) 1,000 MCG TABLET PO SCH (08:05)
[2020-01-08] MEDS: amLODIPine 5 MG TABLET PO SCH (08:06)
[2020-01-08] MEDS: Loratadine 10 MG TABLET PO SCH (08:06)
[2020-01-08] MEDS: Insulin LISPRO 300 UNITS/3 ML VIAL SQ SCH ×4 (08:13→21:52)
[2020-01-08] MEDS: Insulin DETEMIR 100 UNIT/ML X5UNITS SQ SCH ×2 (08:14→21:52)
[2020-01-08] MEDS: Tiotropium 18 MCG inhalation IH SCH (10:53)
[2020-01-08] MEDS: Budesonide/Formoterol 160/4.5 1 PUFF INH IH SCH ×2 (10:53→20:19)
[2020-01-09] MEDS: *HR* Heparin 5,000 UNIT/ML VIAL SQ SCH ×3 (05:55→21:07)
[2020-01-09] MEDS: Cholecalciferol (D-3) 1,000 UNIT (25MCG) TABLET PO SCH (08:24)
[2020-01-09] MEDS: BuPROPion XL (24 HR) 150 MG TABLET PO SCH (08:25)
[2020-01-09] MEDS: Lactobacillus 1 EACH CAP.SPRINK PO SCH (08:25)
[2020-01-09] MEDS: Cyanocobalamin (B-12) 1,000 MCG TABLET PO SCH (08:26)
[2020-01-09] MEDS: levETIRAcetam 250 MG TABLET PO SCH ×2 (08:26→21:06)
[2020-01-09] MEDS: Aspirin 81 MG TAB.CHEW PO SCH (08:26)
[2020-01-09] MEDS: Gabapentin 300 MG CAPSULE PO SCH ×3 (08:26→21:07)
[2020-01-09] MEDS: Loratadine 10 MG TABLET PO SCH (08:26)
[2020-01-09] MEDS: amLODIPine 5 MG TABLET PO SCH (08:26)
[2020-01-09] MEDS: Insulin LISPRO 300 UNITS/3 ML VIAL SQ SCH ×4 (08:33→21:06)
[2020-01-09] MEDS: Insulin DETEMIR 100 UNIT/ML X5UNITS SQ SCH ×2 (08:34→21:08)
[2020-01-09] MEDS: Budesonide/Formoterol 160/4.5 1 PUFF INH IH SCH ×2 (10:30→21:48)
[2020-01-09] MEDS: Tiotropium 18 MCG inhalation IH SCH (10:30)
[2020-01-10] MEDS: *HR* Heparin 5,000 UNIT/ML VIAL SQ SCH ×3 (05:12→21:43)
[2020-01-10] MEDS: Insulin LISPRO 300 UNITS/3 ML VIAL SQ SCH ×4 (09:08→22:00)
[2020-01-10] MEDS: Insulin DETEMIR 100 UNIT/ML X5UNITS SQ SCH ×2 (09:08→22:00)
[2020-01-10] MEDS: Aspirin 81 MG TAB.CHEW PO SCH (09:10)
[2020-01-10] MEDS: Loratadine 10 MG TABLET PO SCH (09:10)
[2020-01-10] MEDS: Lactobacillus 1 EACH CAP.SPRINK PO SCH (09:10)
[2020-01-10] MEDS: Gabapentin 300 MG CAPSULE PO SCH ×3 (09:10→21:43)
[2020-01-10] MEDS: levETIRAcetam 250 MG TABLET PO SCH ×2 (09:10→21:42)
[2020-01-10] MEDS: Cholecalciferol (D-3) 1,000 UNIT (25MCG) TABLET PO SCH (09:11)
[2020-01-10] MEDS: amLODIPine 5 MG TABLET PO SCH (09:11)
[2020-01-10] MEDS: BuPROPion XL (24 HR) 150 MG TABLET PO SCH (09:11)
[2020-01-10] MEDS: Cyanocobalamin (B-12) 1,000 MCG TABLET PO SCH (09:11)
[2020-01-10] MEDS: Tiotropium 18 MCG inhalation IH SCH (09:43)
[2020-01-10] MEDS: Budesonide/Formoterol 160/4.5 1 PUFF INH IH SCH ×2 (09:44→22:31)
[2020-01-10 11:58] LABS: Hematocrit 39.1 % (35.3-44.9); Hemoglobin 12.9 g/dL (11.5-15.4); Mean Platelet Volume 8.9 fL (9.4-12.4); Platelet Count 389 K/mcL (140-400); Red Blood Count 4.16 M/mcL (3.82-4.97); Red Cell Distribution Width 14.1 % (11.5-14.5); White Blood Count 9.8 K/mcL (4.3-11.1)
[2020-01-10 12:19] LABS: Alanine Aminotransferase 20 Units/L (7-52); Albumin 4.1 g/dL (3.5-5.7); Albumin/Globulin Ratio 1.3 (1.1-2.2); Alkaline Phosphatase 102 Units/L (34-104); Aspartate Amino Transferase 13 Units/L (13-39); BUN/Creatinine Ratio 27 (6-26); Bilirubin,Total 0.4 mg/dL (0.3-1.0); Blood Urea Nitrogen 17 mg/dL (8-23); Carbon Dioxide 27 mEq/L (23-29); Chloride 100 mEq/L (98-107); Globulin 3.2 g/dL (2.4-3.5); Glucose 182 mg/dL (70-105); Osmolality,Calculated 288 (280-300); Potassium 4.2 mEq/L (3.5-5.1); Sodium 136 mEq/L (136-145); Total Protein 7.3 g/dL (6.4-8.9); eGFR For African Americans > 60 (> 60); eGFR For Non-African Americans > 60 (> 60)
[2020-01-11] MEDS: *HR* Heparin 5,000 UNIT/ML VIAL SQ SCH ×3 (04:38→21:06)
[2020-01-11] MEDS: Budesonide/Formoterol 160/4.5 1 PUFF INH IH SCH ×2 (06:47→22:06)
[2020-01-11] MEDS: Tiotropium 18 MCG inhalation IH SCH (06:47)
[2020-01-11] MEDS: Insulin LISPRO 300 UNITS/3 ML VIAL SQ SCH ×4 (08:39→19:47)
[2020-01-11] MEDS: Insulin DETEMIR 100 UNIT/ML X5UNITS SQ SCH ×2 (08:39→19:56)
[2020-01-11] MEDS: Cholecalciferol (D-3) 1,000 UNIT (25MCG) TABLET PO SCH (08:41)
[2020-01-11] MEDS: Aspirin 81 MG TAB.CHEW PO SCH (08:42)
[2020-01-11] MEDS: Cyanocobalamin (B-12) 1,000 MCG TABLET PO SCH (08:42)
[2020-01-11] MEDS: amLODIPine 5 MG TABLET PO SCH (08:42)
[2020-01-11] MEDS: Loratadine 10 MG TABLET PO SCH (08:42)
[2020-01-11] MEDS: Gabapentin 300 MG CAPSULE PO SCH ×3 (08:42→19:45)
[2020-01-11] MEDS: Lactobacillus 1 EACH CAP.SPRINK PO SCH ×2 (08:43→19:44)
[2020-01-11] MEDS: levETIRAcetam 250 MG TABLET PO SCH ×2 (08:43→19:45)
[2020-01-11] MEDS: BuPROPion XL (24 HR) 150 MG TABLET PO SCH (08:43)
[2020-01-11] MEDS: Acetaminophen 325 MG TABLET PO PRN (08:52)
[2020-01-11 15:24] LABS: Bilirubin,Urine Negative (Negative); Blood,Urine Trace-intact (Negative); Clarity,Urine Cloudy (Clear); Color,Urine Yellow (Yellow); Glucose,Urine (UA) Normal (Normal); Ketones,Urine Negative (Negative); Leukocyte Esterase,Urine Small (Negative); Nitrite,Urine Positive (Negative); PH,Urine 5.5 pH Units (5.0-8.0); Protein,Urine 100 mg/dL (Neg-Trace); Specific Gravity,Urine >= 1.030 (1.010-1.025); Urobilinogen,Urine Normal (Normal)
[2020-01-11 17:01] LABS: Budding Yeast,Urine Few per hpf (None Seen); Calcium Oxalate Crystals,Urine Present; Squamous Epithelial Cell,Urine Few per hpf (None-Few)
[2020-01-11 17:02] LABS: Bacteria,Urine Few per hpf (None-Few); WBC,Urine 15-30 per hpf (0-3)
[2020-01-11] MEDS: tiZANidine 4 MG TABLET PO SCH (19:45)
[2020-01-12] MEDS: *HR* Heparin 5,000 UNIT/ML VIAL SQ SCH ×3 (05:02→21:04)
[2020-01-12] MEDS: Tiotropium 18 MCG inhalation IH SCH (07:08)
[2020-01-12] MEDS: Budesonide/Formoterol 160/4.5 1 PUFF INH IH SCH ×2 (07:08→21:07)
[2020-01-12] MEDS: Insulin LISPRO 300 UNITS/3 ML VIAL SQ SCH ×4 (08:24→21:05)
[2020-01-12] MEDS: Insulin DETEMIR 100 UNIT/ML X5UNITS SQ SCH ×2 (08:25→21:05)
[2020-01-12] MEDS: Cholecalciferol (D-3) 1,000 UNIT (25MCG) TABLET PO SCH (08:26)
[2020-01-12] MEDS: BuPROPion XL (24 HR) 150 MG TABLET PO SCH (08:27)
[2020-01-12] MEDS: Acetaminophen 325 MG TABLET PO PRN (08:27)
[2020-01-12] MEDS: amLODIPine 5 MG TABLET PO SCH (08:28)
[2020-01-12] MEDS: Cyanocobalamin (B-12) 1,000 MCG TABLET PO SCH (08:29)
[2020-01-12] MEDS: Gabapentin 300 MG CAPSULE PO SCH ×3 (08:29→21:03)
[2020-01-12] MEDS: levETIRAcetam 250 MG TABLET PO SCH ×2 (08:30→21:01)
[2020-01-12] MEDS: tiZANidine 4 MG TABLET PO SCH ×3 (08:30→21:01)
[2020-01-12] MEDS: Aspirin 81 MG TAB.CHEW PO SCH (08:31)
[2020-01-12] MEDS: Loratadine 10 MG TABLET PO SCH (08:31)
[2020-01-12] MEDS: Lactobacillus 1 EACH CAP.SPRINK PO SCH ×2 (08:31→21:00)
[2020-01-13] MEDS: *HR* Heparin 5,000 UNIT/ML VIAL SQ SCH ×3 (04:57→19:56)
[2020-01-13] MEDS: Tiotropium 18 MCG inhalation IH SCH (07:14)
[2020-01-13] MEDS: Budesonide/Formoterol 160/4.5 1 PUFF INH IH SCH ×2 (07:14→21:07)
[2020-01-13] MEDS: Cyanocobalamin (B-12) 1,000 MCG TABLET PO SCH (08:26)
[2020-01-13] MEDS: Gabapentin 300 MG CAPSULE PO SCH ×3 (08:26→19:55)
[2020-01-13] MEDS: Lactobacillus 1 EACH CAP.SPRINK PO SCH ×2 (08:26→19:52)
[2020-01-13] MEDS: Loratadine 10 MG TABLET PO SCH (08:26)
[2020-01-13] MEDS: amLODIPine 5 MG TABLET PO SCH (08:26)
[2020-01-13] MEDS: tiZANidine 4 MG TABLET PO SCH ×3 (08:26→19:53)
[2020-01-13] MEDS: Cholecalciferol (D-3) 1,000 UNIT (25MCG) TABLET PO SCH (08:26)
[2020-01-13] MEDS: BuPROPion XL (24 HR) 150 MG TABLET PO SCH (08:27)
[2020-01-13] MEDS: Aspirin 81 MG TAB.CHEW PO SCH (08:27)
[2020-01-13] MEDS: Insulin DETEMIR 100 UNIT/ML X5UNITS SQ SCH ×2 (08:27→22:01)
[2020-01-13] MEDS: Insulin LISPRO 300 UNITS/3 ML VIAL SQ SCH ×4 (08:27→22:02)
[2020-01-13] MEDS: levETIRAcetam 250 MG TABLET PO SCH ×2 (08:27→19:52)
[2020-01-14] MEDS: *HR* Heparin 5,000 UNIT/ML VIAL SQ SCH ×3 (05:44→23:16)
[2020-01-14] MEDS: Tiotropium 18 MCG inhalation IH SCH (11:42)
[2020-01-14] MEDS: Budesonide/Formoterol 160/4.5 1 PUFF INH IH SCH ×2 (11:43→20:57)
[2020-01-14 12:23] LABS: Basophils # 0.1 K/mcL (0.0-0.2); Basophils % 0.7 %; Eosinophils # 0.2 K/mcL (0.0-0.6); Hematocrit 39.5 % (35.3-44.9); Hemoglobin 13.3 g/dL (11.5-15.4); Immature Granulocytes % 0.2 % (0-4); Lymphocytes # 5.7 K/mcL (0.6-4.6); Lymphocytes % 46.7 %; Mean Corpuscular HGB Conc 33.7 g/dL (31.6-35.5); Mean Corpuscular Hemoglobin 31.6 pg (28.0-33.3); Mean Corpuscular Volume 93.8 fL (83.0-100.0); Mean Platelet Volume 9.2 fL (9.4-12.4); Monocytes # 0.9 K/mcL (0.0-1.3); Neutrophils # 5.3 K/mcL (1.6-8.9); Platelet Count 415 K/mcL (140-400); Red Blood Count 4.21 M/mcL (3.82-4.97); Red Cell Distribution Width 13.4 % (11.5-14.5); Segmented Neutrophils % 43.4 %; White Blood Count 12.2 K/mcL (4.3-11.1)
[2020-01-14 12:39] LABS: BUN/Creatinine Ratio 23 (6-26); Blood Urea Nitrogen 19 mg/dL (8-23); Calcium 10.2 mg/dL (8.6-10.3); Carbon Dioxide 30 mEq/L (23-29); Chloride 96 mEq/L (98-107); Glucose 171 mg/dL (70-105); Osmolality,Calculated 284 (280-300); Potassium 4.4 mEq/L (3.5-5.1); Sodium 134 mEq/L (136-145); eGFR For African Americans > 60 (> 60); eGFR For Non-African Americans > 60 (> 60)
[2020-01-14 12:52] LABS: Platelet Estimate Increased (Normal)
[2020-01-14 12:53] LABS: Macrocytosis Present (Not Present)
[2020-01-14] MEDS: BuPROPion XL (24 HR) 150 MG TABLET PO SCH (15:00)
[2020-01-14] MEDS: Insulin LISPRO 300 UNITS/3 ML VIAL SQ SCH ×4 (15:23→23:17)
[2020-01-14] MEDS: amLODIPine 5 MG TABLET PO SCH (15:39)
[2020-01-14] MEDS: Cholecalciferol (D-3) 1,000 UNIT (25MCG) TABLET PO SCH (15:39)
[2020-01-14] MEDS: Aspirin 81 MG TAB.CHEW PO SCH (15:40)
[2020-01-14] MEDS: Gabapentin 300 MG CAPSULE PO SCH ×3 (15:40→23:15)
[2020-01-14] MEDS: Loratadine 10 MG TABLET PO SCH (15:41)
[2020-01-14] MEDS: Insulin DETEMIR 100 UNIT/ML X5UNITS SQ SCH ×2 (15:42→23:17)
[2020-01-14] MEDS: Cyanocobalamin (B-12) 1,000 MCG TABLET PO SCH (15:42)
[2020-01-14] MEDS: tiZANidine 4 MG TABLET PO SCH ×3 (15:43→23:15)
[2020-01-14] MEDS: levETIRAcetam 250 MG TABLET PO SCH ×2 (15:56→23:15)
[2020-01-14] MEDS: Lactobacillus 1 EACH CAP.SPRINK PO SCH ×2 (15:57→23:15)
[2020-01-15] MEDS: *HR* Heparin 5,000 UNIT/ML VIAL SQ SCH ×3 (05:27→21:39)
[2020-01-15] MEDS: Aspirin 81 MG TAB.CHEW PO SCH (08:49)
[2020-01-15] MEDS: Loratadine 10 MG TABLET PO SCH (08:50)
[2020-01-15] MEDS: Lactobacillus 1 EACH CAP.SPRINK PO SCH ×2 (08:50→21:36)
[2020-01-15] MEDS: Cholecalciferol (D-3) 1,000 UNIT (25MCG) TABLET PO SCH (08:50)
[2020-01-15] MEDS: levETIRAcetam 250 MG TABLET PO SCH ×2 (08:51→21:36)
[2020-01-15] MEDS: Cyanocobalamin (B-12) 1,000 MCG TABLET PO SCH (08:51)
[2020-01-15] MEDS: tiZANidine 4 MG TABLET PO SCH (08:51)
[2020-01-15] MEDS: BuPROPion XL (24 HR) 150 MG TABLET PO SCH (08:52)
[2020-01-15] MEDS: Gabapentin 300 MG CAPSULE PO SCH ×3 (08:52→21:36)
[2020-01-15] MEDS: amLODIPine 5 MG TABLET PO SCH (08:52)
[2020-01-15] MEDS: Insulin DETEMIR 100 UNIT/ML X5UNITS SQ SCH ×2 (08:56→21:40)
[2020-01-15] MEDS: Insulin LISPRO 300 UNITS/3 ML VIAL SQ SCH ×4 (08:56→21:39)
[2020-01-15] MEDS: Tiotropium 18 MCG inhalation IH SCH (11:31)
[2020-01-15] MEDS: Budesonide/Formoterol 160/4.5 1 PUFF INH IH SCH ×2 (11:36→21:54)
[2020-01-15] MEDS: Baclofen 10 MG TABLET PO SCH ×2 (15:14→21:40)
[2020-01-16] MEDS: *HR* Heparin 5,000 UNIT/ML VIAL SQ SCH ×3 (05:53→21:24)
[2020-01-16 06:37] LABS: Basophils # 0.1 K/mcL (0.0-0.2); Basophils % 0.7 %; Eosinophils # 0.2 K/mcL (0.0-0.6); Eosinophils % 2.2 %; Hematocrit 37.1 % (35.3-44.9); Hemoglobin 12.3 g/dL (11.5-15.4); Immature Granulocytes % 0.3 % (0-4); Lymphocytes # 4.6 K/mcL (0.6-4.6); Lymphocytes % 45.4 %; Mean Corpuscular HGB Conc 33.2 g/dL (31.6-35.5); Mean Corpuscular Hemoglobin 31.4 pg (28.0-33.3); Mean Corpuscular Volume 94.6 fL (83.0-100.0); Mean Platelet Volume 9.5 fL (9.4-12.4); Monocytes # 0.7 K/mcL (0.0-1.3); Neutrophils # 4.5 K/mcL (1.6-8.9); Platelet Count 369 K/mcL (140-400); Red Blood Count 3.92 M/mcL (3.82-4.97); Red Cell Distribution Width 13.6 % (11.5-14.5); Segmented Neutrophils % 44.4 %; White Blood Count 10.2 K/mcL (4.3-11.1)
[2020-01-16 06:51] LABS: BUN/Creatinine Ratio 22 (6-26); Blood Urea Nitrogen 17 mg/dL (8-23); Calcium 9.7 mg/dL (8.6-10.3); Carbon Dioxide 28 mEq/L (23-29); Chloride 99 mEq/L (98-107); Glucose 164 mg/dL (70-105); Magnesium 1.9 mg/dL (1.6-2.6); Osmolality,Calculated 287 (280-300); Potassium 3.7 mEq/L (3.5-5.1); Sodium 136 mEq/L (136-145); eGFR For African Americans > 60 (> 60); eGFR For Non-African Americans > 60 (> 60)
[2020-01-16] MEDS: Lactobacillus 1 EACH CAP.SPRINK PO SCH ×2 (08:21→21:23)
[2020-01-16] MEDS: Aspirin 81 MG TAB.CHEW PO SCH (08:21)
[2020-01-16] MEDS: Cyanocobalamin (B-12) 1,000 MCG TABLET PO SCH (08:22)
[2020-01-16] MEDS: Gabapentin 300 MG CAPSULE PO SCH ×3 (08:22→21:23)
[2020-01-16] MEDS: levETIRAcetam 250 MG TABLET PO SCH ×2 (08:22→21:23)
[2020-01-16] MEDS: amLODIPine 5 MG TABLET PO SCH (08:23)
[2020-01-16] MEDS: Cholecalciferol (D-3) 1,000 UNIT (25MCG) TABLET PO SCH (08:23)
[2020-01-16] MEDS: BuPROPion XL (24 HR) 150 MG TABLET PO SCH (08:23)
[2020-01-16] MEDS: Loratadine 10 MG TABLET PO SCH (08:24)
[2020-01-16] MEDS: Baclofen 10 MG TABLET PO SCH ×3 (08:25→21:24)
[2020-01-16] MEDS: Insulin DETEMIR 100 UNIT/ML X5UNITS SQ SCH ×2 (08:30→21:24)
[2020-01-16] MEDS: Insulin LISPRO 300 UNITS/3 ML VIAL SQ SCH ×4 (08:31→21:25)
[2020-01-16] MEDS: Tiotropium 18 MCG inhalation IH SCH (10:18)
[2020-01-16] MEDS: Budesonide/Formoterol 160/4.5 1 PUFF INH IH SCH ×2 (10:18→21:18)
[2020-01-16] MEDS: Acetaminophen 325 MG TABLET PO PRN (13:10)
[2020-01-17] MEDS: *HR* Heparin 5,000 UNIT/ML VIAL SQ SCH ×3 (05:25→20:38)
[2020-01-17] MEDS: Tiotropium 18 MCG inhalation IH SCH (07:20)
[2020-01-17] MEDS: Budesonide/Formoterol 160/4.5 1 PUFF INH IH SCH ×2 (07:21→21:26)
[2020-01-17] MEDS: BuPROPion XL (24 HR) 150 MG TABLET PO SCH (08:16)
[2020-01-17] MEDS: Gabapentin 300 MG CAPSULE PO SCH ×3 (08:16→20:35)
[2020-01-17] MEDS: Lactobacillus 1 EACH CAP.SPRINK PO SCH ×2 (08:16→20:35)
[2020-01-17] MEDS: Cyanocobalamin (B-12) 1,000 MCG TABLET PO SCH (08:17)
[2020-01-17] MEDS: levETIRAcetam 250 MG TABLET PO SCH ×2 (08:17→20:35)
[2020-01-17] MEDS: amLODIPine 5 MG TABLET PO SCH (08:17)
[2020-01-17] MEDS: Cholecalciferol (D-3) 1,000 UNIT (25MCG) TABLET PO SCH (08:17)
[2020-01-17] MEDS: Loratadine 10 MG TABLET PO SCH (08:17)
[2020-01-17] MEDS: Aspirin 81 MG TAB.CHEW PO SCH (08:17)
[2020-01-17] MEDS: Baclofen 10 MG TABLET PO SCH ×3 (08:17→20:40)
[2020-01-17] MEDS: Insulin DETEMIR 100 UNIT/ML X5UNITS SQ SCH ×2 (08:40→20:38)
[2020-01-17] MEDS: Acetaminophen 325 MG TABLET PO PRN (08:40)
[2020-01-17] MEDS: Insulin LISPRO 300 UNITS/3 ML VIAL SQ SCH ×4 (08:41→20:39)
[2020-01-18] MEDS: *HR* Heparin 5,000 UNIT/ML VIAL SQ SCH ×3 (05:29→22:13)
[2020-01-18 05:46] LABS: Basophils # 0.1 K/mcL (0.0-0.2); Basophils % 0.5 %; Eosinophils # 0.3 K/mcL (0.0-0.6); Eosinophils % 2.8 %; Hematocrit 36.5 % (35.3-44.9); Hemoglobin 12.2 g/dL (11.5-15.4); Immature Granulocytes % 0.5 % (0-4); Lymphocytes # 5.3 K/mcL (0.6-4.6); Lymphocytes % 48.9 %; Mean Corpuscular HGB Conc 33.4 g/dL (31.6-35.5); Mean Corpuscular Hemoglobin 31.1 pg (28.0-33.3); Mean Corpuscular Volume 93.1 fL (83.0-100.0); Mean Platelet Volume 9.1 fL (9.4-12.4); Monocytes # 0.8 K/mcL (0.0-1.3); Monocytes % 7.3 %; Neutrophils # 4.3 K/mcL (1.6-8.9); Platelet Count 359 K/mcL (140-400); Red Blood Count 3.92 M/mcL (3.82-4.97); Red Cell Distribution Width 13.3 % (11.5-14.5); White Blood Count 10.8 K/mcL (4.3-11.1)
[2020-01-18 06:02] LABS: BUN/Creatinine Ratio 28 (6-26); Blood Urea Nitrogen 20 mg/dL (8-23); Calcium 9.6 mg/dL (8.6-10.3); Carbon Dioxide 27 mEq/L (23-29); Chloride 101 mEq/L (98-107); Glucose 175 mg/dL (70-105); Osmolality,Calculated 289 (280-300); Potassium 3.8 mEq/L (3.5-5.1); Sodium 136 mEq/L (136-145); eGFR For African Americans > 60 (> 60); eGFR For Non-African Americans > 60 (> 60)
[2020-01-18] MEDS: Cholecalciferol (D-3) 1,000 UNIT (25MCG) TABLET PO SCH (08:49)
[2020-01-18] MEDS: Lactobacillus 1 EACH CAP.SPRINK PO SCH ×2 (08:50→22:13)
[2020-01-18] MEDS: Aspirin 81 MG TAB.CHEW PO SCH (08:50)
[2020-01-18] MEDS: Gabapentin 300 MG CAPSULE PO SCH ×3 (08:50→22:09)
[2020-01-18] MEDS: amLODIPine 5 MG TABLET PO SCH (08:50)
[2020-01-18] MEDS: BuPROPion XL (24 HR) 150 MG TABLET PO SCH (08:50)
[2020-01-18] MEDS: levETIRAcetam 250 MG TABLET PO SCH ×2 (08:51→22:11)
[2020-01-18] MEDS: Baclofen 10 MG TABLET PO SCH ×3 (08:51→22:12)
[2020-01-18] MEDS: Loratadine 10 MG TABLET PO SCH (08:51)
[2020-01-18] MEDS: Insulin LISPRO 300 UNITS/3 ML VIAL SQ SCH ×4 (08:59→21:39)
[2020-01-18] MEDS: Insulin DETEMIR 100 UNIT/ML X5UNITS SQ SCH ×2 (09:00→21:39)
[2020-01-18] MEDS: Tiotropium 18 MCG inhalation IH SCH (09:48)
[2020-01-18] MEDS: Budesonide/Formoterol 160/4.5 1 PUFF INH IH SCH ×2 (09:48→22:09)
[2020-01-19] MEDS: *HR* Heparin 5,000 UNIT/ML VIAL SQ SCH ×3 (05:50→21:34)
[2020-01-19] MEDS: Insulin LISPRO 300 UNITS/3 ML VIAL SQ SCH ×4 (08:44→20:26)
[2020-01-19] MEDS: Insulin DETEMIR 100 UNIT/ML X5UNITS SQ SCH ×2 (08:44→20:26)
[2020-01-19] MEDS: Gabapentin 300 MG CAPSULE PO SCH ×3 (08:46→20:25)
[2020-01-19] MEDS: Aspirin 81 MG TAB.CHEW PO SCH (08:46)
[2020-01-19] MEDS: amLODIPine 5 MG TABLET PO SCH (08:47)
[2020-01-19] MEDS: Cholecalciferol (D-3) 1,000 UNIT (25MCG) TABLET PO SCH (08:47)
[2020-01-19] MEDS: Loratadine 10 MG TABLET PO SCH (08:48)
[2020-01-19] MEDS: Lactobacillus 1 EACH CAP.SPRINK PO SCH ×2 (08:49→20:21)
[2020-01-19] MEDS: BuPROPion XL (24 HR) 150 MG TABLET PO SCH (08:49)
[2020-01-19] MEDS: Baclofen 10 MG TABLET PO SCH ×2 (08:50→15:13)
[2020-01-19] MEDS: levETIRAcetam 250 MG TABLET PO SCH ×2 (08:50→20:21)
[2020-01-19] MEDS: Budesonide/Formoterol 160/4.5 1 PUFF INH IH SCH ×2 (09:41→21:35)
[2020-01-19] MEDS: Tiotropium 18 MCG inhalation IH SCH (09:42)
[2020-01-19 11:13] LABS: Basophils # 0.1 K/mcL (0.0-0.2); Basophils % 0.7 %; Eosinophils % 2.9 %; Hematocrit 37.6 % (35.3-44.9); Hemoglobin 12.8 g/dL (11.5-15.4); Immature Granulocytes % 0.3 % (0-4); Lymphocytes # 5.6 K/mcL (0.6-4.6); Lymphocytes % 47.4 %; Mean Corpuscular Hemoglobin 31.9 pg (28.0-33.3); Mean Corpuscular Volume 93.8 fL (83.0-100.0); Mean Platelet Volume 9.6 fL (9.4-12.4); Monocytes # 0.8 K/mcL (0.0-1.3); Platelet Count 335 K/mcL (140-400); Red Blood Count 4.01 M/mcL (3.82-4.97); Red Cell Distribution Width 13.2 % (11.5-14.5); Segmented Neutrophils % 41.7 %; White Blood Count 11.9 K/mcL (4.3-11.1)
[2020-01-19 11:14] LABS: Eosinophils # 0.4 K/mcL (0.0-0.6)
[2020-01-19 11:23] LABS: Platelet Estimate Normal (Normal); Reactive Lymphocytes Present (Not Present)
[2020-01-19 11:24] LABS: Smudge Cells Present (Not Present)
[2020-01-19 11:31] LABS: Alanine Aminotransferase 13 Units/L (7-52); Albumin 3.9 g/dL (3.5-5.7); Albumin/Globulin Ratio 1.1 (1.1-2.2); Alkaline Phosphatase 108 Units/L (34-104); Aspartate Amino Transferase 9 Units/L (13-39); BUN/Creatinine Ratio 26 (6-26); Bilirubin,Total 0.4 mg/dL (0.3-1.0); Blood Urea Nitrogen 20 mg/dL (8-23); Calcium 9.6 mg/dL (8.6-10.3); Carbon Dioxide 23 mEq/L (23-29); Chloride 101 mEq/L (98-107); Globulin 3.4 g/dL (2.4-3.5); Glucose 192 mg/dL (70-105); Magnesium 1.7 mg/dL (1.6-2.6); Osmolality,Calculated 286 (280-300); Potassium 3.9 mEq/L (3.5-5.1); Sodium 134 mEq/L (136-145); Total Protein 7.3 g/dL (6.4-8.9); eGFR For African Americans > 60 (> 60); eGFR For Non-African Americans > 60 (> 60)
[2020-01-19] MEDS: Vancomycin Oral Soln 125 MG/2.5 ML UDC PO SCH ×3 (12:35→20:26)
[2020-01-19] MEDS: 0.9 % Sodium Chloride 1,000 ML IVC SCH ×2 (14:09→21:34)
[2020-01-20] MEDS: *HR* Heparin 5,000 UNIT/ML VIAL SQ SCH ×3 (05:18→21:00)
[2020-01-20 07:10] LABS: Basophils # 0.1 K/mcL (0.0-0.2); Basophils % 0.6 %; Eosinophils # 0.4 K/mcL (0.0-0.6); Eosinophils % 3.6 %; Hematocrit 35.3 % (35.3-44.9); Hemoglobin 12.1 g/dL (11.5-15.4); Immature Granulocytes % 0.4 % (0-4); Lymphocytes # 4.6 K/mcL (0.6-4.6); Lymphocytes % 46.2 %; Mean Corpuscular HGB Conc 34.3 g/dL (31.6-35.5); Mean Corpuscular Hemoglobin 31.8 pg (28.0-33.3); Mean Corpuscular Volume 92.9 fL (83.0-100.0); Mean Platelet Volume 9.1 fL (9.4-12.4); Monocytes # 0.6 K/mcL (0.0-1.3); Monocytes % 6.4 %; Neutrophils # 4.2 K/mcL (1.6-8.9); Platelet Count 313 K/mcL (140-400); Red Cell Distribution Width 13.2 % (11.5-14.5); Segmented Neutrophils % 42.8 %; White Blood Count 9.9 K/mcL (4.3-11.1)
[2020-01-20 07:25] LABS: BUN/Creatinine Ratio 23 (6-26); Blood Urea Nitrogen 14 mg/dL (8-23); Carbon Dioxide 26 mEq/L (23-29); Chloride 104 mEq/L (98-107); Glucose 144 mg/dL (70-105); Osmolality,Calculated 287 (280-300); Potassium 3.8 mEq/L (3.5-5.1); Sodium 137 mEq/L (136-145); eGFR For African Americans > 60 (> 60); eGFR For Non-African Americans > 60 (> 60)
[2020-01-20] MEDS: Insulin DETEMIR 100 UNIT/ML X5UNITS SQ SCH ×2 (08:04→20:13)
[2020-01-20] MEDS: Vancomycin Oral Soln 125 MG/2.5 ML UDC PO SCH ×4 (08:04→20:11)
[2020-01-20] MEDS: Gabapentin 300 MG CAPSULE PO SCH ×3 (08:05→20:10)
[2020-01-20] MEDS: amLODIPine 5 MG TABLET PO SCH (08:05)
[2020-01-20] MEDS: Aspirin 81 MG TAB.CHEW PO SCH (08:05)
[2020-01-20] MEDS: BuPROPion XL (24 HR) 150 MG TABLET PO SCH (08:05)
[2020-01-20] MEDS: levETIRAcetam 250 MG TABLET PO SCH ×2 (08:05→20:09)
[2020-01-20] MEDS: Lactobacillus 1 EACH CAP.SPRINK PO SCH ×2 (08:05→20:10)
[2020-01-20] MEDS: Insulin LISPRO 300 UNITS/3 ML VIAL SQ SCH ×4 (08:05→20:12)
[2020-01-20] MEDS: Loratadine 10 MG TABLET PO SCH (08:05)
[2020-01-20] MEDS: Cholecalciferol (D-3) 1,000 UNIT (25MCG) TABLET PO SCH (08:05)
[2020-01-20] MEDS: Budesonide/Formoterol 160/4.5 1 PUFF INH IH SCH ×2 (12:36→20:53)
[2020-01-20] MEDS: Tiotropium 18 MCG inhalation IH SCH (12:37)
[2020-01-20] MEDS: Acetaminophen 325 MG TABLET PO PRN (23:59)
[2020-01-21] MEDS: *HR* Heparin 5,000 UNIT/ML VIAL SQ SCH ×3 (04:48→20:56)
[2020-01-21 06:30] LABS: Basophils # 0.1 K/mcL (0.0-0.2); Basophils % 0.7 %; Eosinophils # 0.3 K/mcL (0.0-0.6); Hematocrit 35.7 % (35.3-44.9); Hemoglobin 12.1 g/dL (11.5-15.4); Immature Granulocytes % 0.4 % (0-4); Lymphocytes # 5.3 K/mcL (0.6-4.6); Lymphocytes % 53.7 %; Mean Corpuscular HGB Conc 33.9 g/dL (31.6-35.5); Mean Corpuscular Hemoglobin 31.8 pg (28.0-33.3); Mean Corpuscular Volume 93.7 fL (83.0-100.0); Mean Platelet Volume 9.4 fL (9.4-12.4); Monocytes # 0.7 K/mcL (0.0-1.3); Monocytes % 6.7 %; Neutrophils # 3.5 K/mcL (1.6-8.9); Platelet Count 334 K/mcL (140-400); Red Blood Count 3.81 M/mcL (3.82-4.97); Red Cell Distribution Width 13.2 % (11.5-14.5); Segmented Neutrophils % 35.5 %; White Blood Count 9.8 K/mcL (4.3-11.1)
[2020-01-21 06:43] LABS: BUN/Creatinine Ratio 23 (6-26); Blood Urea Nitrogen 15 mg/dL (8-23); Calcium 9.7 mg/dL (8.6-10.3); Carbon Dioxide 27 mEq/L (23-29); Chloride 101 mEq/L (98-107); Glucose 137 mg/dL (70-105); Osmolality,Calculated 285 (280-300); Potassium 3.9 mEq/L (3.5-5.1); Sodium 136 mEq/L (136-145); eGFR For African Americans > 60 (> 60); eGFR For Non-African Americans > 60 (> 60)
[2020-01-21] MEDS: BuPROPion XL (24 HR) 150 MG TABLET PO SCH (08:59)
[2020-01-21] MEDS: Aspirin 81 MG TAB.CHEW PO SCH (08:59)
[2020-01-21] MEDS: Cholecalciferol (D-3) 1,000 UNIT (25MCG) TABLET PO SCH (08:59)
[2020-01-21] MEDS: Loratadine 10 MG TABLET PO SCH (08:59)
[2020-01-21] MEDS: amLODIPine 5 MG TABLET PO SCH (09:00)
[2020-01-21] MEDS: Vancomycin Oral Soln 125 MG/2.5 ML UDC PO SCH ×4 (09:00→20:57)
[2020-01-21] MEDS: levETIRAcetam 250 MG TABLET PO SCH ×2 (09:00→20:56)
[2020-01-21] MEDS: Lactobacillus 1 EACH CAP.SPRINK PO SCH ×2 (09:00→20:57)
[2020-01-21] MEDS: Insulin LISPRO 300 UNITS/3 ML VIAL SQ SCH ×4 (09:01→20:57)
[2020-01-21] MEDS: Insulin DETEMIR 100 UNIT/ML X5UNITS SQ SCH ×2 (09:16→20:56)
[2020-01-21] MEDS: Gabapentin 300 MG CAPSULE PO SCH ×3 (09:19→20:56)
[2020-01-21] MEDS: Tiotropium 18 MCG inhalation IH SCH (10:44)
[2020-01-21] MEDS: Budesonide/Formoterol 160/4.5 1 PUFF INH IH SCH ×2 (10:44→22:03)
[2020-01-22] MEDS: *HR* Heparin 5,000 UNIT/ML VIAL SQ SCH ×3 (05:31→20:28)
[2020-01-22] MEDS: Loratadine 10 MG TABLET PO SCH (08:37)
[2020-01-22] MEDS: Lactobacillus 1 EACH CAP.SPRINK PO SCH ×2 (08:37→20:30)
[2020-01-22] MEDS: Cholecalciferol (D-3) 1,000 UNIT (25MCG) TABLET PO SCH (08:37)
[2020-01-22] MEDS: Insulin LISPRO 300 UNITS/3 ML VIAL SQ SCH ×4 (08:37→19:59)
[2020-01-22] MEDS: Gabapentin 300 MG CAPSULE PO SCH ×3 (08:37→20:30)
[2020-01-22] MEDS: BuPROPion XL (24 HR) 150 MG TABLET PO SCH (08:38)
[2020-01-22] MEDS: Aspirin 81 MG TAB.CHEW PO SCH (08:38)
[2020-01-22] MEDS: amLODIPine 5 MG TABLET PO SCH (08:38)
[2020-01-22] MEDS: levETIRAcetam 250 MG TABLET PO SCH ×2 (08:38→20:30)
[2020-01-22] MEDS: Insulin DETEMIR 100 UNIT/ML X5UNITS SQ SCH ×2 (08:39→20:28)
[2020-01-22] MEDS: Vancomycin Oral Soln 125 MG/2.5 ML UDC PO SCH ×4 (08:39→20:30)
[2020-01-22] MEDS: Tiotropium 18 MCG inhalation IH SCH (11:07)
[2020-01-22] MEDS: Budesonide/Formoterol 160/4.5 1 PUFF INH IH SCH ×2 (11:09→19:13)
[2020-01-22] MEDS: Baclofen 10 MG TABLET PO SCH (20:30)
[2020-01-23] MEDS: *HR* Heparin 5,000 UNIT/ML VIAL SQ SCH ×3 (04:49→21:50)
[2020-01-23 07:30] LABS: Bilirubin,Urine Negative (Negative); Blood,Urine Negative (Negative); Clarity,Urine Clear (Clear); Color,Urine Yellow (Yellow); Glucose,Urine (UA) Normal (Normal); Ketones,Urine Negative (Negative); Leukocyte Esterase,Urine Negative (Negative); Nitrite,Urine Positive (Negative); Protein,Urine Trace mg/dL (Neg-Trace); Specific Gravity,Urine 1.025 (1.010-1.025); Urobilinogen,Urine Normal (Normal)
[2020-01-23 07:39] LABS: Bacteria,Urine Many per hpf (None-Few); Squamous Epithelial Cell,Urine Few per hpf (None-Few)
[2020-01-23] MEDS: Aspirin 81 MG TAB.CHEW PO SCH (08:46)
[2020-01-23] MEDS: Gabapentin 300 MG CAPSULE PO SCH ×3 (08:46→22:52)
[2020-01-23] MEDS: Loratadine 10 MG TABLET PO SCH (08:46)
[2020-01-23] MEDS: Cholecalciferol (D-3) 1,000 UNIT (25MCG) TABLET PO SCH (08:47)
[2020-01-23] MEDS: BuPROPion XL (24 HR) 150 MG TABLET PO SCH (08:47)
[2020-01-23] MEDS: levETIRAcetam 250 MG TABLET PO SCH ×2 (08:47→21:51)
[2020-01-23] MEDS: Insulin DETEMIR 100 UNIT/ML X5UNITS SQ SCH ×2 (08:47→21:52)
[2020-01-23] MEDS: Lactobacillus 1 EACH CAP.SPRINK PO SCH ×2 (08:47→21:50)
[2020-01-23] MEDS: amLODIPine 5 MG TABLET PO SCH (08:47)
[2020-01-23] MEDS: Baclofen 10 MG TABLET PO SCH ×2 (08:47→21:51)
[2020-01-23] MEDS: Vancomycin Oral Soln 125 MG/2.5 ML UDC PO SCH ×4 (08:48→21:50)
[2020-01-23] MEDS: Insulin LISPRO 300 UNITS/3 ML VIAL SQ SCH ×4 (08:49→21:54)
[2020-01-23] MEDS: Tiotropium 18 MCG inhalation IH SCH (09:33)
[2020-01-23] MEDS: Budesonide/Formoterol 160/4.5 1 PUFF INH IH SCH ×2 (09:33→19:28)
[2020-01-23] MEDS: Acetaminophen 325 MG TABLET PO PRN (21:51)
[2020-01-24] MEDS: *HR* Heparin 5,000 UNIT/ML VIAL SQ SCH ×3 (05:20→21:43)
[2020-01-24] MEDS: Cholecalciferol (D-3) 1,000 UNIT (25MCG) TABLET PO SCH (09:52)
[2020-01-24] MEDS: Aspirin 81 MG TAB.CHEW PO SCH (09:53)
[2020-01-24] MEDS: levETIRAcetam 250 MG TABLET PO SCH ×2 (09:53→21:44)
[2020-01-24] MEDS: Gabapentin 300 MG CAPSULE PO SCH ×3 (09:53→21:44)
[2020-01-24] MEDS: Lactobacillus 1 EACH CAP.SPRINK PO SCH ×2 (09:54→21:44)
[2020-01-24] MEDS: Baclofen 10 MG TABLET PO SCH ×2 (09:54→21:44)
[2020-01-24] MEDS: Loratadine 10 MG TABLET PO SCH (09:55)
[2020-01-24] MEDS: Vancomycin Oral Soln 125 MG/2.5 ML UDC PO SCH ×4 (09:55→21:43)
[2020-01-24] MEDS: Insulin DETEMIR 100 UNIT/ML X5UNITS SQ SCH ×2 (09:55→21:43)
[2020-01-24] MEDS: Insulin LISPRO 300 UNITS/3 ML VIAL SQ SCH ×4 (09:55→21:42)
[2020-01-24] MEDS: BuPROPion XL (24 HR) 150 MG TABLET PO SCH (09:57)
[2020-01-24] MEDS: amLODIPine 5 MG TABLET PO SCH (09:57)
[2020-01-24] MEDS: Tiotropium 18 MCG inhalation IH SCH (10:31)
[2020-01-24] MEDS: Budesonide/Formoterol 160/4.5 1 PUFF INH IH SCH ×2 (10:32→21:25)
[2020-01-25] MEDS: *HR* Heparin 5,000 UNIT/ML VIAL SQ SCH ×3 (04:59→20:20)
[2020-01-25] MEDS: Insulin LISPRO 300 UNITS/3 ML VIAL SQ SCH ×4 (08:44→20:26)
[2020-01-25] MEDS: Insulin DETEMIR 100 UNIT/ML X5UNITS SQ SCH ×2 (08:44→20:21)
[2020-01-25] MEDS: Loratadine 10 MG TABLET PO SCH (08:45)
[2020-01-25] MEDS: BuPROPion XL (24 HR) 150 MG TABLET PO SCH (08:45)
[2020-01-25] MEDS: Cholecalciferol (D-3) 1,000 UNIT (25MCG) TABLET PO SCH (08:45)
[2020-01-25] MEDS: Vancomycin Oral Soln 125 MG/2.5 ML UDC PO SCH ×4 (08:45→20:05)
[2020-01-25] MEDS: Gabapentin 300 MG CAPSULE PO SCH ×3 (08:45→20:03)
[2020-01-25] MEDS: levETIRAcetam 250 MG TABLET PO SCH ×2 (08:45→20:04)
[2020-01-25] MEDS: Baclofen 10 MG TABLET PO SCH ×2 (08:46→20:04)
[2020-01-25] MEDS: Aspirin 81 MG TAB.CHEW PO SCH (08:46)
[2020-01-25] MEDS: Lactobacillus 1 EACH CAP.SPRINK PO SCH ×2 (08:46→20:04)
[2020-01-25] MEDS: amLODIPine 5 MG TABLET PO SCH (08:46)
[2020-01-25] MEDS: Tiotropium 18 MCG inhalation IH SCH (10:58)
[2020-01-25] MEDS: Budesonide/Formoterol 160/4.5 1 PUFF INH IH SCH ×2 (10:59→18:53)
[2020-01-26] MEDS: *HR* Heparin 5,000 UNIT/ML VIAL SQ SCH ×3 (04:59→21:29)
[2020-01-26] MEDS: Vancomycin Oral Soln 125 MG/2.5 ML UDC PO SCH ×4 (08:08→21:28)
[2020-01-26] MEDS: Insulin DETEMIR 100 UNIT/ML X5UNITS SQ SCH ×2 (08:08→21:30)
[2020-01-26] MEDS: Insulin LISPRO 300 UNITS/3 ML VIAL SQ SCH ×4 (08:08→21:30)
[2020-01-26] MEDS: BuPROPion XL (24 HR) 150 MG TABLET PO SCH (08:08)
[2020-01-26] MEDS: amLODIPine 5 MG TABLET PO SCH (08:09)
[2020-01-26] MEDS: Baclofen 10 MG TABLET PO SCH ×2 (08:09→21:28)
[2020-01-26] MEDS: Loratadine 10 MG TABLET PO SCH (08:09)
[2020-01-26] MEDS: levETIRAcetam 250 MG TABLET PO SCH ×2 (08:09→21:28)
[2020-01-26] MEDS: Lactobacillus 1 EACH CAP.SPRINK PO SCH ×2 (08:09→21:27)
[2020-01-26] MEDS: Aspirin 81 MG TAB.CHEW PO SCH (08:09)
[2020-01-26] MEDS: Cholecalciferol (D-3) 1,000 UNIT (25MCG) TABLET PO SCH (08:09)
[2020-01-26] MEDS: Gabapentin 300 MG CAPSULE PO SCH ×3 (08:09→21:28)
[2020-01-26] MEDS: Budesonide/Formoterol 160/4.5 1 PUFF INH IH SCH ×2 (10:33→20:22)
[2020-01-26] MEDS: Tiotropium 18 MCG inhalation IH SCH (10:33)
[2020-01-27] MEDS: *HR* Heparin 5,000 UNIT/ML VIAL SQ SCH ×3 (04:06→21:39)
[2020-01-27 06:16] LABS: Hematocrit 38.1 % (35.3-44.9); Hemoglobin 12.6 g/dL (11.5-15.4); Mean Corpuscular HGB Conc 33.1 g/dL (31.6-35.5); Mean Corpuscular Hemoglobin 31.2 pg (28.0-33.3); Mean Corpuscular Volume 94.3 fL (83.0-100.0); Mean Platelet Volume 9.3 fL (9.4-12.4); Platelet Count 353 K/mcL (140-400); Red Blood Count 4.04 M/mcL (3.82-4.97); Red Cell Distribution Width 13.1 % (11.5-14.5); White Blood Count 11.4 K/mcL (4.3-11.1)
[2020-01-27 06:30] LABS: BUN/Creatinine Ratio 25 (6-26); Blood Urea Nitrogen 17 mg/dL (8-23); Calcium 9.7 mg/dL (8.6-10.3); Carbon Dioxide 30 mEq/L (23-29); Chloride 98 mEq/L (98-107); Glucose 225 mg/dL (70-105); Magnesium 1.8 mg/dL (1.6-2.6); Osmolality,Calculated 287 (280-300); Potassium 4.4 mEq/L (3.5-5.1); Sodium 134 mEq/L (136-145); eGFR For African Americans > 60 (> 60); eGFR For Non-African Americans > 60 (> 60)
[2020-01-27] MEDS: Acetaminophen 325 MG TABLET PO PRN (07:43)
[2020-01-27] MEDS: Insulin LISPRO 300 UNITS/3 ML VIAL SQ SCH ×4 (08:29→21:38)
[2020-01-27] MEDS: Insulin DETEMIR 100 UNIT/ML X5UNITS SQ SCH ×2 (08:29→21:40)
[2020-01-27] MEDS: Vancomycin Oral Soln 125 MG/2.5 ML UDC PO SCH ×4 (08:31→21:38)
[2020-01-27] MEDS: Baclofen 10 MG TABLET PO SCH ×2 (08:32→21:39)
[2020-01-27] MEDS: Lactobacillus 1 EACH CAP.SPRINK PO SCH ×2 (08:32→21:37)
[2020-01-27] MEDS: levETIRAcetam 250 MG TABLET PO SCH ×2 (08:32→21:39)
[2020-01-27] MEDS: BuPROPion XL (24 HR) 150 MG TABLET PO SCH (08:32)
[2020-01-27] MEDS: amLODIPine 5 MG TABLET PO SCH (08:33)
[2020-01-27] MEDS: Cholecalciferol (D-3) 1,000 UNIT (25MCG) TABLET PO SCH (08:33)
[2020-01-27] MEDS: Aspirin 81 MG TAB.CHEW PO SCH (08:33)
[2020-01-27] MEDS: Gabapentin 300 MG CAPSULE PO SCH ×3 (08:33→21:39)
[2020-01-27] MEDS: Loratadine 10 MG TABLET PO SCH (08:33)
[2020-01-27] MEDS: Tiotropium 18 MCG inhalation IH SCH (10:38)
[2020-01-27] MEDS: Budesonide/Formoterol 160/4.5 1 PUFF INH IH SCH ×2 (10:39→20:23)
[2020-01-28] MEDS: *HR* Heparin 5,000 UNIT/ML VIAL SQ SCH ×3 (05:32→20:43)
[2020-01-28] MEDS: Tiotropium 18 MCG inhalation IH SCH (07:39)
[2020-01-28] MEDS: Budesonide/Formoterol 160/4.5 1 PUFF INH IH SCH ×2 (07:40→19:57)
[2020-01-28] MEDS: Insulin DETEMIR 100 UNIT/ML X5UNITS SQ SCH ×2 (08:30→20:43)
[2020-01-28] MEDS: Insulin LISPRO 300 UNITS/3 ML VIAL SQ SCH ×4 (08:31→20:44)
[2020-01-28] MEDS: Vancomycin Oral Soln 125 MG/2.5 ML UDC PO SCH ×4 (08:31→20:43)
[2020-01-28] MEDS: BuPROPion XL (24 HR) 150 MG TABLET PO SCH (09:09)
[2020-01-28] MEDS: Baclofen 10 MG TABLET PO SCH ×2 (09:09→20:42)
[2020-01-28] MEDS: Aspirin 81 MG TAB.CHEW PO SCH (09:09)
[2020-01-28] MEDS: Cholecalciferol (D-3) 1,000 UNIT (25MCG) TABLET PO SCH (09:09)
[2020-01-28] MEDS: amLODIPine 5 MG TABLET PO SCH (09:10)
[2020-01-28] MEDS: Lactobacillus 1 EACH CAP.SPRINK PO SCH ×2 (09:10→20:41)
[2020-01-28] MEDS: Loratadine 10 MG TABLET PO SCH (09:10)
[2020-01-28] MEDS: Gabapentin 300 MG CAPSULE PO SCH ×3 (09:10→20:41)
[2020-01-28] MEDS: levETIRAcetam 250 MG TABLET PO SCH ×2 (09:11→20:42)
[2020-01-29] MEDS: *HR* Heparin 5,000 UNIT/ML VIAL SQ SCH ×3 (04:17→21:47)
[2020-01-29] MEDS: Insulin DETEMIR 100 UNIT/ML X5UNITS SQ SCH ×2 (08:20→21:48)
[2020-01-29] MEDS: Vancomycin Oral Soln 125 MG/2.5 ML UDC PO SCH ×4 (08:21→21:47)
[2020-01-29] MEDS: Insulin LISPRO 300 UNITS/3 ML VIAL SQ SCH ×4 (08:21→21:49)
[2020-01-29] MEDS: Gabapentin 300 MG CAPSULE PO SCH ×3 (08:24→21:46)
[2020-01-29] MEDS: BuPROPion XL (24 HR) 150 MG TABLET PO SCH (08:24)
[2020-01-29] MEDS: amLODIPine 5 MG TABLET PO SCH (08:24)
[2020-01-29] MEDS: Baclofen 10 MG TABLET PO SCH ×2 (08:24→21:45)
[2020-01-29] MEDS: Loratadine 10 MG TABLET PO SCH (08:24)
[2020-01-29] MEDS: Lactobacillus 1 EACH CAP.SPRINK PO SCH ×2 (08:24→21:44)
[2020-01-29] MEDS: Cholecalciferol (D-3) 1,000 UNIT (25MCG) TABLET PO SCH (08:24)
[2020-01-29] MEDS: Aspirin 81 MG TAB.CHEW PO SCH (08:24)
[2020-01-29] MEDS: levETIRAcetam 250 MG TABLET PO SCH ×2 (08:25→21:46)
[2020-01-29] MEDS: Budesonide/Formoterol 160/4.5 1 PUFF INH IH SCH ×2 (09:35→20:41)
[2020-01-29] MEDS: Tiotropium 18 MCG inhalation IH SCH (09:35)
[2020-01-30] MEDS: Acetaminophen 325 MG TABLET PO PRN (04:53)
[2020-01-30] MEDS: *HR* Heparin 5,000 UNIT/ML VIAL SQ SCH (04:53)
[2020-01-30 05:45] LABS: Basophils # 0.1 K/mcL (0.0-0.2); Basophils % 0.7 %; Eosinophils # 0.3 K/mcL (0.0-0.6); Eosinophils % 2.8 %; Hematocrit 38.4 % (35.3-44.9); Hemoglobin 12.6 g/dL (11.5-15.4); Immature Granulocytes % 0.4 % (0-4); Lymphocytes % 46.9 %; Mean Corpuscular HGB Conc 32.8 g/dL (31.6-35.5); Mean Corpuscular Volume 94.3 fL (83.0-100.0); Mean Platelet Volume 9.5 fL (9.4-12.4); Monocytes # 0.8 K/mcL (0.0-1.3); Monocytes % 7.1 %; Neutrophils # 4.5 K/mcL (1.6-8.9); Platelet Count 343 K/mcL (140-400); Red Blood Count 4.07 M/mcL (3.82-4.97); Segmented Neutrophils % 42.1 %; White Blood Count 10.7 K/mcL (4.3-11.1)
[2020-01-30 05:59] LABS: BUN/Creatinine Ratio 25 (6-26); Blood Urea Nitrogen 22 mg/dL (8-23); Calcium 9.7 mg/dL (8.6-10.3); Carbon Dioxide 27 mEq/L (23-29); Chloride 98 mEq/L (98-107); Glucose 230 mg/dL (70-105); Osmolality,Calculated 289 (280-300); Potassium 4.2 mEq/L (3.5-5.1); Sodium 134 mEq/L (136-145); eGFR For African Americans > 60 (> 60); eGFR For Non-African Americans > 60 (> 60)
[2020-01-30 07:14] VITALS: BP 137/86
[2020-01-30] MEDS: Tiotropium 18 MCG inhalation IH SCH (07:36)
[2020-01-30] MEDS: Budesonide/Formoterol 160/4.5 1 PUFF INH IH SCH (07:37)
[2020-01-30] MEDS: Insulin DETEMIR 100 UNIT/ML X5UNITS SQ SCH (08:47)
[2020-01-30] MEDS: Cholecalciferol (D-3) 1,000 UNIT (25MCG) TABLET PO SCH (08:48)
[2020-01-30] MEDS: Insulin LISPRO 300 UNITS/3 ML VIAL SQ SCH (08:48)
[2020-01-30] MEDS: Vancomycin Oral Soln 125 MG/2.5 ML UDC PO SCH (08:48)
[2020-01-30] MEDS: Gabapentin 300 MG CAPSULE PO SCH (08:49)
[2020-01-30] MEDS: BuPROPion XL (24 HR) 150 MG TABLET PO SCH (08:49)
[2020-01-30] MEDS: amLODIPine 5 MG TABLET PO SCH (08:49)
[2020-01-30] MEDS: Loratadine 10 MG TABLET PO SCH (08:49)
[2020-01-30] MEDS: Lactobacillus 1 EACH CAP.SPRINK PO SCH (08:49)
[2020-01-30] MEDS: levETIRAcetam 250 MG TABLET PO SCH (08:49)
[2020-01-30] MEDS: Baclofen 10 MG TABLET PO SCH (08:49)
[2020-01-30] MEDS: Aspirin 81 MG TAB.CHEW PO SCH (08:49)
== END 2020-01-30 12:16 | disposition home health service (06) | DRG 56 ==
LOC: INPGRE 12:50
PROVIDERS: ADMIT Family Medicine; ATTEND Family Medicine